=== PATIENT | male | born 1975 | race African-American/Black ===

== ENCOUNTER 2017-04-22 | Emergency (ER) | payer SELFPAY ==
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
--- NOTE | 2017-04-22 17:18 | EDPHYS ---
Physician Documentation [facility] Name: Mark Anthony Schultz Age: 41 yrs Sex: Male : 1975 Arrival Date: 04/22/2017 Time: 16:33 Bed 25 Private MD: None, None ED Physician Dennis Buckner HPI: 04/22 17:25 This 41 yrs old Black Male presents to ER via Ambulatory with complaints of Mouth snw Injury. 17:25 The patient presents with pain, swelling, a white plaque. The problem is located in the snw lower left lateral incisor. Onset: The symptoms/episode began/occurred acutely, yesterday, and became worse today, Noted pain post bumping chin against pole during [place] parade. Pt's states it is probably a tooth that he did not get extracted. Duration: The symptoms are continuous. Associated signs and symptoms: Pertinent positives: pain, redness in area, swelling. Severity of symptoms: At their worst the symptoms were moderate. It is unknown whether or not the patient has had similar symptoms in the past. The patient has not recently seen a physician. Historical: - Allergies: 16:52 Ibuprofen; hj - Home Meds: 16:52 eye drops [Active]; hj - PMHx: 16:52 None; hj - PSHx: 16:52 None; hj - Immunization history:: Adult Immunizations up to date. - Social history:: Smoking status: Patient uses tobacco products, denies chronic smoking, but will smoke occasionally. ROS: 17:25 Constitutional: Negative for fever, chills, and weight loss, Eyes: Negative for injury, snw pain, redness, and discharge, Neck: Negative for injury, pain, and swelling, Cardiovascular: Negative for chest pain, palpitations, and edema, Respiratory: Negative for shortness of breath, cough, wheezing, and pleuritic chest pain, Abdomen/GI: Negative for abdominal pain, nausea, vomiting, diarrhea, and constipation, Back: Negative for injury and pain, : Negative for injury, bleeding, discharge, and swelling, MS/Extremity: Negative for injury and deformity, Skin: Negative for injury, rash, and discoloration, Neuro: Negative for headache, weakness, numbness, tingling, and seizure. 17:25 ENT: Positive for of the chin, Teeth pain Exam: 17:20 Constitutional: This is a well developed, well nourished patient who is awake, alert, snw and in no acute distress. Head/Face: Normocephalic, atraumatic. Eyes: Pupils equal round and reactive to light, extra-ocular motions intact. Lids and lashes normal. Conjunctiva and sclera are non-icteric and not injected. Cornea within normal limits. Periorbital areas with no swelling, redness, or edema. Neck: Trachea midline, no thyromegaly or masses palpated, and no cervical lymphadenopathy. Supple, full range of motion without nuchal rigidity, or vertebral point tenderness. No Meningismus. Chest/axilla: Normal chest wall appearance and motion. Nontender with no deformity. No lesions are appreciated. Cardiovascular: Regular rate and rhythm with a normal S1 and S2. No gallops, murmurs, or rubs. Normal PMI, no JVD. No pulse deficits. Respiratory: Lungs have equal breath sounds bilaterally, clear to auscultation and percussion. No rales, rhonchi or wheezes noted. No increased work of breathing, no retractions or nasal flaring. Abdomen/GI: Soft, non-tender, with normal bowel sounds. No distension or tympany. No guarding or rebound. No evidence of tenderness throughout. Back: No spinal tenderness. No costovertebral tenderness. Full range of motion. Skin: Warm, dry with normal turgor. Normal color with no rashes, no lesions, and no evidence of cellulitis. MS/ Extremity: Pulses equal, no cyanosis. Neurovascular intact. Full, normal range of motion. Neuro: Awake and alert, GCS 15, oriented to person, place, time, and situation. Cranial nerves II-XII grossly intact. Motor strength 5/5 in all extremities. Sensory grossly intact. Cerebellar exam normal. Normal gait. Psych: Awake, alert, with orientation to person, place and time. Behavior, mood, and affect are within normal limits. 17:20 ENT: External ear(s): are unremarkable, Ear canal(s): are normal, Nose: is normal, Mouth: Oral mucosa: noted to have obvious stomatitis, Gums: pink, reddened, swollen, on the lower left lateral incisor, incisor to lower left mandible with exudate, erythema, edema, Posterior pharynx: is normal, Voice: is normal. Vital Signs: 16:53 BP 130 / 72; Pulse 90; Resp 18; Temp 98.0(O); Pulse Ox 100% on R/A; Weight 86.64 kg; hj Height 6 ft. 0 in. (182.88 cm); Pain 10/10; 16:53 Body Mass Index 25.91 (86.64 kg, 182.88 cm) hj MDM: 17:11 Patient medically screened. snw 17:25 Data reviewed: vital signs, nurses notes. Data interpreted: Pulse oximetry: on room air snw is 100 %. Interpretation: normal. Counseling: I had a detailed discussion with the patient and/or guardian regarding: the historical points, exam findings, and any diagnostic results supporting the discharge/admit diagnosis, the need for outpatient follow up, to return to the emergency department if symptoms worsen or persist or if there are any questions or concerns that arise at home. Special discussion: I discussed in detail with the patient the higher chance of wound infection based on his presenting history. Based on the history and exam findings, there is no indication for further emergent testing or inpatient evaluation. I discussed with the patient/guardian the need to see a dentist for further evaluation of the symptoms. I discussed with the patient/guardian the need to see the primary care provider for further evaluation of the symptoms. Administered Medications: 17:58 Not Given (pt discharged prior to giving medications): UltRAM 50 mg PO once tl3 17:58 Not Given (pt discharged prior to administering medications): Clindamycin 600 mg IM oncetl3 Disposition: 04/23 10:49 Co-signature as Attending Physician, Dennis Buckner MD I agree with the assessment and gayle plan of care. Disposition: 18 17:16 Discharged to Home. Impression: Periapical abscess without sinus. - Condition is Stable. - Discharge Instructions: Dental Abscess, Root Canal Treatment, Diet and Dental Disease. - Prescriptions for chlorhexidine gluconate 0.12 % Mucous Membrane mouthwash - place 15 milliliter by MUCOUS MEMBRANE route 2 times per day after brushing teeth, swish in mouth for 30 seconds then spit out; 480 milliliter. Clindamycin HCl 300 mg Oral Capsule - take 1 capsule by ORAL route every 6 hours for 10 days; 40 capsule. Ultram 50 mg Oral Tablet - take 1 tablet by ORAL route every 6 hours As needed; 20 tablet. - Medication Reconciliation Form, Thank You Letter, Antibiotic Education, Prescription Opioid Use form. - Follow up: Private Physician; When: Tomorrow; Reason: Recheck today's complaints, Continuance of care, Re-evaluation by your physician. Follow up: Emergency Department; When: As needed; Reason: Worsening of condition. Signatures: Dennis Buckner MD MD cha Therrien, Shelly, ADULT NEUROPSYCHOLOGIST-C ADULT NEUROPSYCHOLOGIST-Csnw Mejia Finch, RN RN Coretta Valladares RN RN tl3
== END 2017-04-22 18:00 | disposition home or self-care (01) ==
CPT/HCPCS: 99281

== ENCOUNTER 2017-11-13 20:17 | Emergency (ER) | payer SELFPAY ==
--- NOTE | 2017-11-13 20:44 | EDPHYS ---
Physician Documentation [facility] Name: Mark Anthony Schultz Age: 41 yrs Sex: Male : 1975 Arrival Date: 11/13/2017 Time: 20:20 Bed 10 Private MD: ED Physician Dion De La Torre HPI: 11/13 20:47 This 41 yrs old Black Male presents to ER via Ambulatory with complaints of Dental Pain.snw 20:47 The patient presents with broken tooth/teeth, pain, swelling. The problem is located in snw the left mandibular. Onset: The symptoms/episode began/occurred 3 week(s) ago. Duration: The symptoms are continuous. Associated signs and symptoms: Pertinent positives: pain. Severity of symptoms: At their worst the symptoms were moderate, severe. The patient has experienced similar episodes in the past. The patient has not recently seen a physician. states he is unable to afford dentist and would like shot of abx instead of pills. Historical: - Allergies: 20:28 Ibuprofen; sr5 - Home Meds: 20:28 None [Active]; sr5 - PMHx: 20:28 "low blood pressure some times"; sr5 - PSHx: 20:28 None; sr5 - Immunization history:: Adult Immunizations. - Social history:: Smoking status: Patient uses tobacco products, unknown amount. - Ebola Screening: : No symptoms or risks identified at this time. ROS: 20:46 Constitutional: Negative for fever, chills, and weight loss, Eyes: Negative for injury, snw pain, redness, and discharge, Neck: Negative for injury, pain, and swelling, Cardiovascular: Negative for chest pain, palpitations, and edema, Respiratory: Negative for shortness of breath, cough, wheezing, and pleuritic chest pain, Abdomen/GI: Negative for abdominal pain, nausea, vomiting, diarrhea, and constipation, Back: Negative for injury and pain, : Negative for injury, bleeding, discharge, and swelling, MS/Extremity: Negative for injury and deformity, Skin: Negative for injury, rash, and discoloration, Neuro: Negative for headache, weakness, numbness, tingling, and seizure, Psych: Negative for depression, anxiety, suicide ideation, homicidal ideation, and hallucinations. 20:46 ENT: Positive for Teeth pain Exam: 20:45 Constitutional: This is a well developed, well nourished patient who is awake, alert, snw and in no acute distress. Head/Face: Normocephalic, atraumatic. Eyes: Pupils equal round and reactive to light, extra-ocular motions intact. Lids and lashes normal. Conjunctiva and sclera are non-icteric and not injected. Cornea within normal limits. Periorbital areas with no swelling, redness, or edema. Neck: Trachea midline, no thyromegaly or masses palpated, and no cervical lymphadenopathy. Supple, full range of motion without nuchal rigidity, or vertebral point tenderness. No Meningismus. Chest/axilla: Normal chest wall appearance and motion. Nontender with no deformity. No lesions are appreciated. Cardiovascular: Regular rate and rhythm with a normal S1 and S2. No gallops, murmurs, or rubs. Normal PMI, no JVD. No pulse deficits. Respiratory: Lungs have equal breath sounds bilaterally, clear to auscultation and percussion. No rales, rhonchi or wheezes noted. No increased work of breathing, no retractions or nasal flaring. Abdomen/GI: Soft, non-tender, with normal bowel sounds. No distension or tympany. No guarding or rebound. No evidence of tenderness throughout. Back: No spinal tenderness. No costovertebral tenderness. Full range of motion. Skin: Warm, dry with normal turgor. Normal color with no rashes, no lesions, and no evidence of cellulitis. MS/ Extremity: Pulses equal, no cyanosis. Neurovascular intact. Full, normal range of motion. Neuro: Awake and alert, GCS 15, oriented to person, place, time, and situation. Cranial nerves II-XII grossly intact. Motor strength 5/5 in all extremities. Sensory grossly intact. Cerebellar exam normal. Normal gait. 20:45 ENT: Mouth: is normal, Posterior pharynx: is normal, Dental exam: dental caries, that is severe, diffusely, fractured teeth are noted, mandibular, missing teeth, diffusely, Breath odor: smoking. Vital Signs: 20:28 BP 136 / 95; Pulse 99; Resp 14; Temp 97.9; Pulse Ox 96% ; Weight 99.79 kg (R); Height 6 sr5 ft. 0 in. (182.88 cm); Pain 10/10; 20:28 Body Mass Index 29.84 (99.79 kg, 182.88 cm) sr5 MDM: 20:30 Patient medically screened. snw 20:46 Data reviewed: vital signs, nurses notes. Data interpreted: Pulse oximetry: on room air snw is 96 %. Interpretation: acceptable. Counseling: I had a detailed discussion with the patient and/or guardian regarding: the historical points, exam findings, and any diagnostic results supporting the discharge/admit diagnosis, the presence of at least one elevated blood pressure reading (>120/80) during this emergency department visit, the need for outpatient follow up, to return to the emergency department if symptoms worsen or persist or if there are any questions or concerns that arise at home. Special discussion: I have referred the patient to see his PCP for further evaluation of high blood pressure. Based on the history and exam findings, there is no indication for further emergent testing or inpatient evaluation. I discussed with the patient/guardian the need to see a dentist for further evaluation of the symptoms. I discussed with the patient/guardian the need to see the primary care provider for further evaluation of the symptoms. 20:47 Counseling: I had a detailed discussion with the patient and/or guardian regarding: snw smoking cessation. Administered Medications: 20:54 Drug: UltRAM 50 mg Route: PO; mg2 20:55 Follow up: Response: No adverse reaction; Medication administered at discharge. mg2 20:55 Drug: Bicillin L-A 2.4 million units Route: IM; Site: right gluteus; mg2 21:14 Follow up: Response: No adverse reaction mg2 Disposition: 11/14 01:01 Co-signature as Attending Physician, Dion De La Torre MD. rn Disposition: 11/13/17 20:43 Discharged to Home. Impression: Essential (primary) hypertension, Dental root caries. - Condition is Stable. - Discharge Instructions: Dental Caries, Adult, Dental Pain, Hypertension, Steps to Quit Smoking, Smoking Hazards, Root Canal, Diet and Dental Disease, DASH Eating Plan, Rehydration, Adult, Managing Your Hypertension. - Prescriptions for Ultram 50 mg Oral Tablet - take 1 tablet by ORAL route every 8 hours As needed; 10 tablet. - Medication Reconciliation Form, Thank You Letter, Antibiotic Education, Prescription Opioid Use form. - Follow up: Private Physician; When: 2 - 3 days; Reason: Recheck today's complaints, Continuance of care, Re-evaluation by your physician. Follow up: Emergency Department; When: As needed; Reason: Worsening of condition. Signatures: Genesis Bynres, UX VISUAL DESIGNER-C UX VISUAL DESIGNER-Csnw Dion De La Torre MD MD rn Ronal Mejia RN RN sr5 Vance Machaod RN RN mg2 Corrections: (The following items were deleted from the chart) 11/13 21:13 20:43 11/13/2017 20:43 Discharged to Home. Impression: Essential (primary) mg2 hypertension; Dental root caries. Condition is Stable. Forms are Medication Reconciliation Form, Thank You Letter, Antibiotic Education, Prescription Opioid Use. Follow up: Private Physician; When: 2 - 3 days; Reason: Recheck today's complaints, Continuance of care, Re-evaluation by your physician. Follow up: Emergency Department; When: As needed; Reason: Worsening of condition. snw
--- NOTE | 2017-11-13 20:44 | ER ---
Nurse's Notes [facility] Name: Mark Anthony Schultz Age: 41 yrs Sex: Male : 1975 Arrival Date: 11/13/2017 Time: 20:20 Bed 10 Private MD: Diagnosis: Essential (primary) hypertension;Dental root caries Presentation: 11/13 20:25 Presenting complaint: Patient states: LEFT lower tooth pain x 2 weeks, "unable to sr5 afford surgery". Transition of care: patient was not received from another setting of care. Onset of symptoms was October 25, 2017. 20:25 Method Of Arrival: Ambulatory sr5 20:25 Acuity: PAMELA 4 sr5 21:12 Risk Assessment: Do you want to hurt yourself or someone else? Patient reports no mg2 desire to harm self or others. Initial Sepsis Screen: Does the patient meet any 2 criteria? No. Patient's initial sepsis screen is negative. Does the patient have a suspected source of infection? No. Patient's initial sepsis screen is negative. Care prior to arrival: None. Triage Assessment: 20:28 General: Appears uncomfortable, Behavior is calm, cooperative. Pain: Complains of pain sr5 in mouth Pain currently is 10 out of 10 on a pain scale. Quality of pain is described as throbbing. Neuro: No deficits noted. Cardiovascular: No deficits noted. Respiratory: No deficits noted. Historical: - Allergies: 20:28 Ibuprofen; sr5 - Home Meds: 20:28 None [Active]; sr5 - PMHx: 20:28 "low blood pressure some times"; sr5 - PSHx: 20:28 None; sr5 - Immunization history:: Adult Immunizations. - Social history:: Smoking status: Patient uses tobacco products, unknown amount. - Ebola Screening: : No symptoms or risks identified at this time. Screenin:11 Abuse screen: Denies threats or abuse. Denies injuries from another. Nutritional mg2 screening: No deficits noted. Tuberculosis screening: No symptoms or risk factors identified. Fall Risk None identified. Assessment: 21:10 General: Appears in no apparent distress. uncomfortable, Behavior is calm, cooperative. mg2 Pain: Complains of pain in teeth Pain does not radiate. Pain currently is 10 out of 10 on a pain scale. Quality of pain is described as aching, Pain began gradually. Neuro: Level of Consciousness is awake, alert, obeys commands, Oriented to person, place, time, situation. Cardiovascular: Capillary refill < 3 seconds Patient's skin is warm and dry. Respiratory: Airway is patent Respiratory effort is even, unlabored, Respiratory pattern is regular, symmetrical. GI: No signs and/or symptoms were reported involving the gastrointestinal system. : No signs and/or symptoms were reported regarding the genitourinary system. EENT: No signs and/or symptoms were reported regarding the EENT system. EENT: tooth pain. Derm: Skin is intact, is healthy with good turgor, Skin is pink, warm \\T\\ dry. normal. Musculoskeletal: Circulation, motion, and sensation intact. Vital Signs: 20:28 BP 136 / 95; Pulse 99; Resp 14; Temp 97.9; Pulse Ox 96% ; Weight 99.79 kg (R); Height 6 sr5 ft. 0 in. (182.88 cm); Pain 10/10; 20:28 Body Mass Index 29.84 (99.79 kg, 182.88 cm) sr5 ED Course: 20:20 Patient arrived in ED. ds1 20:27 Triage completed. sr5 20:28 [facility]. snw 20:28 Dion De La Torre MD is Attending Physician. snw 20:28 Arm band placed on. sr5 20:33 Vance Machado, EDGAR is Primary Nurse. mg2 21:12 Patient has correct armband on for positive identification. Bed in low position. Pulse mg2 ox on. NIBP on. 21:12 No provider procedures requiring assistance completed. Patient did not have IV access mg2 during this emergency room visit. Administered Medications: 20:54 Drug: UltRAM 50 mg Route: PO; mg2 20:55 Follow up: Response: No adverse reaction; Medication administered at discharge. mg2 20:55 Drug: Bicillin L-A 2.4 million units Route: IM; Site: right gluteus; mg2 21:14 Follow up: Response: No adverse reaction mg2 Outcome: 20:43 Discharge ordered by . snw 21:13 Discharged to home ambulatory. mg2 21:13 Condition: stable 21:13 Discharge instructions given to patient, Instructed on discharge instructions, follow up and referral plans. medication usage, Demonstrated understanding of instructions, follow-up care, medications, Prescriptions given X 1. 21:13 Patient left the ED. mg2 Signatures: Genesis Byrnes, KNITTER WIRE MESH-C KNITTER WIRE MESH-Csnw Di Kay ds1 Ronal Mejia RN RN sr5 Vance Machado RN RN mg2
[2017-11-13] MEDS ORDERED: TRAMADOL HCL 50 MG TAB ONE (20:54)
[2017-11-13] MEDS ORDERED: PEN G BENZ LA 2.4 MU/4 ML SYRINGE IM ONE (20:54)
== END 2017-11-13 21:13 | disposition home or self-care (01) ==
LOC: ER 20:17
DX: K02.7 Dental root caries (principal); I10 Essential (primary) hypertension; Z72.0 Tobacco use; Z88.6 Allergy status to analgesic agent
CPT/HCPCS: 96372; 99283; J0561

== ENCOUNTER 2018-04-03 23:40 | Emergency (ER) | payer SELFPAY ==
--- NOTE | 2018-04-04 00:11 | EDPHYS ---
Physician Documentation [facility] Name: Mark Anthony Schultz Age: 42 yrs Sex: Male : 1975 Arrival Date: 04/03/2018 Time: 23:42 Bed 14 Private MD: ED Physician Jose Espinal HPI: 04/04 00:07 This 42 yrs old Black Male presents to ER via Ambulatory with complaints of Mouth jr8 Problem. 00:07 The patient presents with broken tooth/teeth, pain. The problem is located in the upper jr8 right first molar. Onset: The symptoms/episode began/occurred acutely, 3 day(s) ago, and became worse and became persistent. Duration: The symptoms are continuous. Modifying factors: The symptoms are alleviated by nothing, the symptoms are aggravated by chewing, talking. Associated signs and symptoms: The patient has no apparent associated signs or symptoms. Severity of symptoms: At their worst the symptoms were moderate, in the emergency department the symptoms are unchanged. The patient has not experienced similar symptoms in the past. The patient has not recently seen a physician. Scheduled to see Dentist this upcoming week but cannot take the pain any longer. Has been using BC powder and Ibuprofen OTC. Historical: - Allergies: 04/03 23:49 Ibuprofen; tl2 - Home Meds: 23:49 None [Active]; tl2 - PMHx: 23:49 "low blood pressure some times"; tl2 - PSHx: 23:49 None; tl2 - Immunization history:: Adult Immunizations up to date. - Social history:: Smoking status: Patient uses tobacco products, smokes one-half pack cigarettes per day, Patient uses alcohol, occasionally. - Ebola Screening: : No symptoms or risks identified at this time. ROS: 04/04 00:07 Eyes: Negative for injury, pain, redness, and discharge, Neck: Negative for injury, jr8 pain, and swelling, Cardiovascular: Negative for chest pain, palpitations, and edema, Respiratory: Negative for shortness of breath, cough, wheezing, and pleuritic chest pain, Abdomen/GI: Negative for abdominal pain, nausea, vomiting, diarrhea, and constipation, Back: Negative for injury and pain, MS/Extremity: Negative for injury and deformity, Skin: Negative for injury, rash, and discoloration, Neuro: Negative for headache, weakness, numbness, tingling, and seizure. ENT: Positive for dental pain. Exam: 00:07 Eyes: Pupils equal round and reactive to light, extra-ocular motions intact. Lids and jr8 lashes normal. Conjunctiva and sclera are non-icteric and not injected. Cornea within normal limits. Periorbital areas with no swelling, redness, or edema. Neck: Trachea midline, no thyromegaly or masses palpated, and no cervical lymphadenopathy. Supple, full range of motion without nuchal rigidity, or vertebral point tenderness. No Meningismus. Cardiovascular: Regular rate and rhythm with a normal S1 and S2. No gallops, murmurs, or rubs. Normal PMI, no JVD. No pulse deficits. Respiratory: Lungs have equal breath sounds bilaterally, clear to auscultation and percussion. No rales, rhonchi or wheezes noted. No increased work of breathing, no retractions or nasal flaring. Abdomen/GI: Soft, non-tender, with normal bowel sounds. No distension or tympany. No guarding or rebound. No evidence of tenderness throughout. Back: No spinal tenderness. No costovertebral tenderness. Full range of motion. Skin: Warm, dry with normal turgor. Normal color with no rashes, no lesions, and no evidence of cellulitis. MS/ Extremity: Pulses equal, no cyanosis. Neurovascular intact. Full, normal range of motion. Neuro: Awake and alert, GCS 15, oriented to person, place, time, and situation. Cranial nerves II-XII grossly intact. Motor strength 5/5 in all extremities. Sensory grossly intact. Cerebellar exam normal. Normal gait. 00:07 ENT: Exam is negative for earache, ear discharge, TM abnormalities, nasal discharge, pharyngitis, exudate, Dental exam: dental caries, that is severe, diffusely, fractured teeth are noted, diffusely, pain, that is moderate, specifically in the upper right second molar (#2) and upper right first molar (#3). Vital Signs: 04/03 23:49 BP 131 / 99; Pulse 92; Resp 18; Temp 98.5(O); Pulse Ox 97% on R/A; Weight 98.43 kg; tl2 Height 6 ft. 1 in. (185.42 cm); Pain 10/10; 23:49 Body Mass Index 28.63 (98.43 kg, 185.42 cm) tl2 MDM: 04/04 00:04 Patient medically screened. jr8 00:07 Data reviewed: vital signs, nurses notes, and as a result, I will discharge patient. jr8 Data interpreted: Pulse oximetry: on room air is 97 %. Interpretation: normal. Counseling: I had a detailed discussion with the patient and/or guardian regarding: the historical points, exam findings, and any diagnostic results supporting the discharge/admit diagnosis, the need for outpatient follow up, a dentist, to return to the emergency department if symptoms worsen or persist or if there are any questions or concerns that arise at home. Administered Medications: No medications were administered Disposition: 06:09 Co-signature as Attending Physician, Jose Espinal MD I agree with the assessment and tw4 plan of care. Disposition: 04/04/18 00:10 Discharged to Home. Impression: Dental caries, Dental root caries, Dentalgia . - Condition is Stable. - Discharge Instructions: Dental Caries, Adult, Dental Pain. - Prescriptions for Augmentin 875- 125 mg Oral Tablet - take 1 tablet by ORAL route every 12 hours for 10 days; 20 tablet. Pepcid 20 mg Oral Tablet - take 1 tablet by ORAL route every 12 hours for 10 days; 20 tablet. Tylenol- Codeine #3 300-30 mg Oral Tablet - take 2 tablets by ORAL route every 6 hours As needed; 20 tablet. - Medication Reconciliation Form, Thank You Letter, Antibiotic Education, Prescription Opioid Use form. - Follow up: Private Physician; When: 5 - 6 days; Reason: Recheck today's complaints, Continuance of care, Re-evaluation by your physician. - Problem is new. - Symptoms have improved. Signatures: Steven Ford PA PA jr8 Pauline Martinez RN RN tl2 Ghanshyam Desai RN RN jb4 Jose Espinal MD MD tw4 Corrections: (The following items were deleted from the chart) 00: 00:10 04/04/2018 00:10 Discharged to Home. Impression: Dental caries; Dental root jb4 caries; Dentalgia . Condition is Stable. Forms are Medication Reconciliation Form, Thank You Letter, Antibiotic Education, Prescription Opioid Use. Follow up: Private Physician; When: 5 - 6 days; Reason: Recheck today's complaints, Continuance of care, Re-evaluation by your physician. Problem is new. Symptoms have improved. jr8
--- NOTE | 2018-04-04 00:11 | ER ---
Nurse's Notes [facility] Name: Mark Anthony Schultz Age: 42 yrs Sex: Male : 1975 Arrival Date: 04/03/2018 Time: 23:42 Bed 14 Private MD: Diagnosis: Dental caries;Dental root caries;Dentalgia Presentation: 04/03 23:48 Presenting complaint: Patient states: broke tooth 1 week ago, upper right molar is tl2 gone. Unable to see dentist for 1 week. Has taken four BC powder and tylenol. Transition of care: patient was not received from another setting of care. Onset of symptoms was March 27, 2018. Risk Assessment: Do you want to hurt yourself or someone else? Patient reports no desire to harm self or others. Initial Sepsis Screen: Does the patient meet any 2 criteria? No. Patient's initial sepsis screen is negative. Does the patient have a suspected source of infection? No. Patient's initial sepsis screen is negative. Care prior to arrival: None. 23:48 Method Of Arrival: Ambulatory tl2 23:48 Acuity: PAMELA 4 tl2 Triage Assessment: 23:49 General: Appears in no apparent distress. uncomfortable, Behavior is calm, cooperative, tl2 appropriate for age. Pain: Complains of pain in upper right first molar. Historical: - Allergies: 23:49 Ibuprofen; tl2 - Home Meds: 23:49 None [Active]; tl2 - PMHx: 23:49 "low blood pressure some times"; tl2 - PSHx: 23:49 None; tl2 - Immunization history:: Adult Immunizations up to date. - Social history:: Smoking status: Patient uses tobacco products, smokes one-half pack cigarettes per day, Patient uses alcohol, occasionally. - Ebola Screening: : No symptoms or risks identified at this time. Screenin:50 Abuse screen: Denies threats or abuse. Nutritional screening: No deficits noted. tl2 Tuberculosis screening: No symptoms or risk factors identified. Fall Risk None identified. Assessment: 23:50 General: Appears uncomfortable, Behavior is calm, cooperative, appropriate for age. jb4 Pain: Complains of pain in upper right first molar Pain radiates to right zygomatic area Pain currently is 10 out of 10 on a pain scale. Neuro: Level of Consciousness is awake, alert, obeys commands, Oriented to person, place, time, situation. Cardiovascular: Patient's skin is warm and dry. Respiratory: Airway is patent Respiratory effort is even, unlabored, Respiratory pattern is regular, symmetrical. GI: Reports nausea. : No signs and/or symptoms were reported regarding the genitourinary system. EENT: Poor dentition noted. Throat is clear. Derm: Skin is intact, Skin is dry, Skin is normal, Skin temperature is warm. Musculoskeletal: Circulation, motion, and sensation intact. Vital Signs: 23:49 BP 131 / 99; Pulse 92; Resp 18; Temp 98.5(O); Pulse Ox 97% on R/A; Weight 98.43 kg; tl2 Height 6 ft. 1 in. (185.42 cm); Pain 10/10; 23:49 Body Mass Index 28.63 (98.43 kg, 185.42 cm) tl2 ED Course: 23:42 Patient arrived in ED. es 23:49 Triage completed. tl2 23:49 Arm band placed on right wrist. tl2 23:50 Patient has correct armband on for positive identification. Bed in low position. Call tl2 light in reach. Side rails up X 1. Adult w/ patient. 23:55 Steven Ford PA is PHCP. jr8 23:55 Jose Espinal MD is Attending Physician. jr8 23:56 Ghanshyam Desai, RN is Primary Nurse. jb4 04/04 00:19 No provider procedures requiring assistance completed. Patient did not have IV access jb4 during this emergency room visit. Administered Medications: No medications were administered Outcome: 00:10 Discharge ordered by . jr8 00:19 Discharged to home ambulatory. jb4 00:19 Condition: stable 00:19 Discharge instructions given to patient, Instructed on discharge instructions, follow up and referral plans. medication usage, Demonstrated understanding of instructions, follow-up care, medications, Prescriptions given X 3. 00:19 Patient left the ED. jb4 Signatures: Shila Tolentino Josh, PA PA jr8 Pauline Martinez RN RN tl2 Ghanshyam Desai RN RN jb4
== END 2018-04-04 00:19 | disposition home or self-care (01) ==
LOC: ER 23:40
DX: K02.7 Dental root caries (principal); K02.9 Dental caries, unspecified; F17.210 Nicotine dependence, cigarettes, uncomplicated; Z88.6 Allergy status to analgesic agent
CPT/HCPCS: 99282

== ENCOUNTER 2018-04-05 08:37 | Emergency (ER) | payer SELFPAY ==
[2018-04-05 09:06] LABS: Absolute Lymphocytes (CBC) 2.6 K/uL (0.7-4.9); Absolute Monocytes 1.5 K/uL (0.1-1.3); Absolute Neutrophil 12.2 K/uL (1.8-8.0); Basophils % 0.7 % (0-1.3); Eosinophils % 0.9 % (0-4.4); Hematocrit 43.3 % (39.6-49.0); Lymphocytes % 15.5 % (15.3-44.8); MPV 8.1 fL (7.6-11.3); Monocytes % 9.1 % (3.3-12.3); RBC Red Blood Cell Count 5.05 M/uL (4.33-5.43)
[2018-04-05] MEDS ORDERED: KETOROLAC 30 MG/ML INJ ONE (09:17)
[2018-04-05] MEDS ORDERED: CLINDAMYCIN 900MG/D5W 900 MG/50 ML IVPB IV ONE (09:17)
[2018-04-05 09:22] LABS: Potassium 3.8 mmol/L (3.5-5.1)
--- NOTE | 2018-04-05 10:09 | RAD REPORT ---
EXAM DESCRIPTION: CT - Facial Bones W Con Mpr - 04/05/2018 9:38 am CLINICAL HISTORY: Fever, right-sided facial pain and swelling COMPARISON: None. TECHNIQUE: Axial 2 millimeter thick imaging of the facial bones performed. Sagittal and coronal refo rmatted images were generated and reviewed. The CT scan was performed using dose optimization techniques as appropriate to a performed exam incl uding one or more of the following: Automated exposure control, adjustment of the mA and/or kV accord ing to patient size (this includes techniques or standardized protocols for targeted exams where dose is matched to indication/reason for exam) and use of iterative reconstruction technique. FINDINGS: No globe or orbital content abnormality identified. Paranasal sinuses are clear except for mild mucosal thickening along the anterior wall and anterior floor the right maxillary sinus. No air -fluid level. Mastoid air cells are clear. No sclerotic or expansile changes of the sinus londono. A ve ry slight right deviation of the nasal septum is present. No nasal passage or nasopharyngeal abnormal ity identifiable. Condyles of the mandible are normally positioned. No fracture changes are seen. There is lucency arou nd the roots of several teeth in the mandible. There is cortical thinning anteriorly. Congestion and edema changes are seen in mucosa and soft tissues adjacent to the lateral and medial margins of the m andible. Lucency is identifiable in the maxilla as well around several of the teeth. Cortical thinnin g is seen posterior right maxilla. Edematous/inflammatory changes are present in the soft tissues but no clearly defined abscess or drainable collections seen. Note tongue base or tonsillar abnormality. Reactive lymph nodes are seen in the neck. No suspicious parotid or submandibular gland abnormality. IMPRESSION: Edematous/inflammatory changes are seen in the soft tissues adjacent to the mandible and maxilla. No abscess or drainable fluid collection is identifiable. Cortical thinning and lucency surrounds several teeth of the mandible and maxilla.
--- NOTE | 2018-04-05 10:26 | EDPHYS ---
Physician Documentation [facility] Name: Mark Anthony Schultz Age: 42 yrs Sex: Male : 1975 Arrival Date: 04/05/2018 Time: 08:40 Bed 19 Private MD: None, None ED Physician Mono Stern HPI: 04/05 12:06 This 42 yrs old Black Male presents to ER via Ambulatory with complaints of Facial kdr Swelling. 12:06 The patient presents with pain, redness, swelling. The problem is located in the right kdr shinto, right zygomatic area and right cheek. Onset: The symptoms/episode began/occurred gradually, 1 week(s) ago. Duration: The symptoms are continuous, and are steadily getting worse. Modifying factors: The symptoms are alleviated by nothing, the symptoms are aggravated by chewing, food. Associated signs and symptoms: The patient has no apparent associated signs or symptoms. Severity of symptoms: At their worst the symptoms were mild, moderate, just prior to arrival, in the emergency department the symptoms are actually worse, mildly, a " 5" out of "10". The patient has experienced similar episodes in the past, several times. The patient has been recently seen by a physician: The patient has been recently seen at the [facility] Emergency Department, this week. Historical: - Allergies: 08:48 Ibuprofen; hj - Home Meds: 08:48 None [Active]; hj - PMHx: 08:48 "low blood pressure some times"; hj - PSHx: 08:48 None; hj - Immunization history:: Adult Immunizations up to date. - Social history:: Smoking status: Patient uses tobacco products, Patient/guardian denies using alcohol. - Ebola Screening: : Patient negative for fever greater than or equal to 101.5 degrees Fahrenheit, and additional compatible Ebola Virus Disease symptoms Patient denies exposure to infectious person Patient denies travel to an Ebola-affected area in the 21 days before illness onset. ROS: 12:06 Constitutional: Negative for fever, chills, and weight loss, Eyes: Negative for injury, kdr pain, redness, and discharge, Neck: Negative for injury, pain, and swelling, Cardiovascular: Negative for chest pain, palpitations, and edema. 12:06 ENT: Positive for Pain and swelling to the right face for the past week. Was seen here for same and given abx and pain medication but he continues to have pain and swelling. 12:06 Neck: Positive for pain with movement, pain at rest, swelling, tenderness, of the right shinto and right zygomatic area. Exam: 12:06 Constitutional: This is a well developed, well nourished patient who is awake, alert, kdr and in no acute distress. Eyes: Pupils equal round and reactive to light, extra-ocular motions intact. Lids and lashes normal. Conjunctiva and sclera are non-icteric and not injected. Cornea within normal limits. Periorbital areas with no swelling, redness, or edema. 12:06 Head/face: Noted is erythema, that is mild, of the right shinto and right zygomatic area, swelling, that is moderate, of the right shinto and right zygomatic area, tenderness, that is mild, of the right shinto and right zygomatic area. Vital Signs: 08:50 BP 142 / 100; Pulse 111; Resp 18; Temp 98.0(O); Pulse Ox 98% on R/A; Weight 106.14 kg; hj Height 6 ft. 1 in. (185.42 cm); 10:49 BP 138 / 89; Pulse 81; Resp 17; Pulse Ox 100% on R/A; Pain 6/10; ed1 08:50 Body Mass Index 30.87 (106.14 kg, 185.42 cm) hj MDM: 10:25 Patient medically screened. kdr 12:06 Data reviewed: vital signs, nurses notes, lab test result(s), radiologic studies. kdr Counseling: I had a detailed discussion with the patient and/or guardian regarding: the historical points, exam findings, and any diagnostic results supporting the discharge/admit diagnosis, lab results, radiology results, the need for outpatient follow up. 04/05 08:52 Order name: CBC with Diff; Complete Time: 09:35 kdr 03 08:52 Order name: Chem 7; Complete Time: 09:35 kdr 04/05 08:52 Order name: CT Facial Bones W/ Con \\T\\ Mpr; Complete Time: 10:22 kdr Administered Medications: 09:09 Drug: TORadol 30 mg Route: IVP; Site: right antecubital; 09:33 Follow up: Response: No adverse reaction; Pain is decreased 09:09 Drug: Clindamycin 900 mg Route: IVPB; Infused Over: 30 mins; Site: right antecubital; 09:34 Follow up: IV Status: Completed infusion Disposition: 04/05/18 10:25 Discharged to Home. Impression: Facial Cellulitis, Poor dentition, dental infection. - Condition is Stable. - Discharge Instructions: Cellulitis, Adult, [id number], Dental Caries, [id number]. - Prescriptions for ketorolac 10 mg Oral tablet - take 1 tablet by ORAL route every 4-6 hours As needed not to exceed 40 mg in 24hrs; 20 tablet. Clindamycin HCl 300 mg Oral Capsule - take 1 capsule by ORAL route every 6 hours for 10 days; 40 capsule. - Medication Reconciliation Form, Thank You Letter, Antibiotic Education, Prescription Opioid Use form. - Follow up: Private Physician; When: 2 - 3 days; Reason: If symptoms return, Further diagnostic work-up, Recheck today's complaints, Continuance of care, Re-evaluation by your physician. - Problem is an ongoing problem. - Symptoms have improved. - Notes: Continue current medications Signatures: Dispatcher [employer] EDMS Mono Stern MD MD kdr Dorys Batista RN RN ed1 Mejia Finch RN RN Corrections: (The following items were deleted from the chart) 10:51 10:25 04/05/2018 10:25 Discharged to Home. Impression: Facial Cellulitis, Poor ed1 dentition, dental infection. Condition is Stable. Forms are Medication Reconciliation Form, Thank You Letter, Antibiotic Education, Prescription Opioid Use. Follow up: Private Physician; When: 2 - 3 days; Reason: If symptoms return, Further diagnostic work-up, Recheck today's complaints, Continuance of care, Re-evaluation by your physician. Problem is an ongoing problem. Symptoms have improved. kdr
--- NOTE | 2018-04-05 10:26 | ER ---
Nurse's Notes [facility] Name: Mark Anthony Schultz Age: 42 yrs Sex: Male : 1975 Arrival Date: 04/05/2018 Time: 08:40 Bed 19 Private MD: None, None Diagnosis: Facial Cellulitis, Poor dentition, dental infection Presentation: 04/05 08:46 Presenting complaint: Patient states: i was here 2 nights ago for tooth problems and hj they gave me antibiotics, now the R side of my face is swollen;. Transition of care: patient was not received from another setting of care. Onset of symptoms was April 05, 2018. Risk Assessment: Do you want to hurt yourself or someone else? Patient reports no desire to harm self or others. Initial Sepsis Screen: Does the patient meet any 2 criteria? Yes Does the patient have a suspected source of infection? Yes:. Care prior to arrival: None. 08:46 Method Of Arrival: Ambulatory 08:46 Acuity: PAMELA 4 hj Triage Assessment: 08:48 General: Appears in no apparent distress. uncomfortable, Behavior is calm, cooperative, hj appropriate for age. Pain: Complains of pain in right cheek, right ear and right jaw. EENT: Reports pain in right cheek, right ear and right jaw. Neuro: Level of Consciousness is awake, alert, obeys commands, Oriented to person, place, time, situation, Appropriate for age. Cardiovascular: Capillary refill < 3 seconds Patient's skin is warm and dry. Respiratory: Airway is patent Respiratory effort is even, unlabored, Respiratory pattern is regular, symmetrical. GI: No signs and/or symptoms were reported involving the gastrointestinal system. : No signs and/or symptoms were reported regarding the genitourinary system. Derm: Abscess Reports swelling on R side of face. Musculoskeletal: No signs and/or symptoms reported regarding the musculoskeletal system. Historical: - Allergies: 08:48 Ibuprofen; hj - Home Meds: 08:48 None [Active]; hj - PMHx: 08:48 "low blood pressure some times"; hj - PSHx: 08:48 None; hj - Immunization history:: Adult Immunizations up to date. - Social history:: Smoking status: Patient uses tobacco products, Patient/guardian denies using alcohol. - Ebola Screening: : Patient negative for fever greater than or equal to 101.5 degrees Fahrenheit, and additional compatible Ebola Virus Disease symptoms Patient denies exposure to infectious person Patient denies travel to an Ebola-affected area in the 21 days before illness onset. Screenin:48 Abuse screen: Denies threats or abuse. Denies injuries from another. Nutritional hj screening: No deficits noted. Tuberculosis screening: No symptoms or risk factors identified. Fall Risk None identified. Assessment: 08:51 Reassessment: see triage for assessment;. hj 09:30 Reassessment: wheeled to CT;. hj 10:49 Reassessment: Patient appears in no apparent distress at this time. Patient and/or ed1 family updated on plan of care and expected duration. Pain level reassessed. Patient is alert, oriented x 3, equal unlabored respirations, skin warm/dry/pink. Patient states feeling better. Patient states symptoms have improved. Vital Signs: 08:50 BP 142 / 100; Pulse 111; Resp 18; Temp 98.0(O); Pulse Ox 98% on R/A; Weight 106.14 kg; hj Height 6 ft. 1 in. (185.42 cm); 10:49 BP 138 / 89; Pulse 81; Resp 17; Pulse Ox 100% on R/A; Pain 6/10; ed1 08:50 Body Mass Index 30.87 (106.14 kg, 185.42 cm) ED Course: 08:40 Patient arrived in ED. mr 08:40 None, None is Private Physician. mr 08:42 Mono Stern MD is Attending Physician. kdr 08:46 Mejia Finch, EDGAR is Primary Nurse. hj 08:47 Triage completed. hj 08:49 Arm band placed on left wrist. hj 08:49 Patient has correct armband on for positive identification. Bed in low position. Call light in reach. Side rails up X 1. 08:56 Radiology exam delayed due to lab results not completed at this time. (BUN/Creatinine). vm2 09:00 Initial lab(s) drawn, by me, sent to lab. Inserted saline lock: 22 gauge in right hj antecubital area, using aseptic technique. Blood collected. 09:03 Chem 7 Sent. hj 09:03 CBC with Diff Sent. hj 09:13 Radiology exam delayed due to lab results not completed at this time. (BUN/Creatinine). vm2 09:[address] via wheelchair. vm2 09:33 CT completed. Patient tolerated procedure well. Patient moved back from CT. vr 09:38 CT Facial Bones W/ Con \\T\\ Mpr In Process Unspecified. EDMS 09:59 Primary Nurse role handed off by Mejia Finch, EDGAR ed1 09:59 Dorys Batista, RN is Primary Nurse. ed1 10:49 No provider procedures requiring assistance completed. IV discontinued, intact, ed1 bleeding controlled, No redness/swelling at site. Pressure dressing applied. Administered Medications: 09:09 Drug: TORadol 30 mg Route: IVP; Site: right antecubital; hj 09:33 Follow up: Response: No adverse reaction; Pain is decreased hj 09:09 Drug: Clindamycin 900 mg Route: IVPB; Infused Over: 30 mins; Site: right antecubital; hj 09:34 Follow up: IV Status: Completed infusion hj Outcome: 10:25 Discharge ordered by . kdr 10:49 Discharged to home ambulatory. ed1 10:49 Condition: good 10:49 Discharge instructions given to patient, Instructed on discharge instructions, follow up and referral plans. medication usage, Demonstrated understanding of instructions, follow-up care, medications, Prescriptions given X 2. 10:51 Patient left the ED. ed1 Signatures: Dispatcher [employer] EDNH Mono Stern MD MD kdr Rivera, Mary mr Dorys Batista, EDGAR HERNÁNDEZ ed1 Ifrah Nash Mejia Finch RN RN Ifrah Stover 2
== END 2018-04-05 10:51 | disposition home or self-care (01) ==
LOC: ER 08:37
DX: K04.7 Periapical abscess without sinus (principal); Z72.0 Tobacco use; Z88.6 Allergy status to analgesic agent
CPT/HCPCS: 36415; 70487; 76377; 80048; 85025; 96365; 96375; 99284; Q9967

== ENCOUNTER 2018-06-30 13:33 | Emergency (ER) | payer SELFPAY ==
[2018-06-30] MEDS ORDERED: NA CHLORIDE 0.9% 1,000 ML ONE ×2 (14:37→16:59)
[2018-06-30 14:54] LABS: Absolute Lymphocytes (CBC) 1.8 K/uL (0.7-4.9); Absolute Monocytes 1.5 K/uL (0.1-1.3); Absolute Neutrophil 8.5 K/uL (1.8-8.0); Basophils % 0.5 % (0-1.3); Eosinophils % 0.6 % (0-4.4); Hematocrit 45.5 % (39.6-49.0); Lymphocytes % 14.8 % (15.3-44.8); MPV 8.6 fL (7.6-11.3); Monocytes % 12.9 % (3.3-12.3); RBC Red Blood Cell Count 5.24 M/uL (4.33-5.43)
[2018-06-30 15:22] LABS: ALT/SGPT 41 U/L (12-78); AST/SGOT 25 U/L (15-37); Albumin 3.6 g/dL (3.4-5.0); Alkaline Phosphatase 107 U/L (45-117); BUN Blood Urea Nitrogen 9 mg/dL (7-18); Bicarbonate 28 mmol/L (21-32); Bilirubin Direct < 0.1 mg/dL (0-0.2); Bilirubin Total 0.4 mg/dL (0.2-1.0); Glucose Level 91 mg/dL (74-106); Lipase 84 U/L (73-393); Potassium 4.1 mmol/L (3.5-5.1); Protein, Total 7.4 g/dL (6.4-8.2); Sodium Level 139 mmol/L (136-145)
[2018-06-30] MEDS ORDERED: PROMETHAZINE 25 MG/ML VIAL ONE (15:36)
[2018-06-30] MEDS ORDERED: FENTANYL CITR 100 MCG/2 ML ONE (15:37)
[2018-06-30] MEDS ORDERED: ACETAMINOPHEN 500 MG TAB ONE (16:01)
--- NOTE | 2018-06-30 16:19 | RAD REPORT ---
EXAM DESCRIPTION: CT - Abdomen Pelvis W Contrast - 06/30/2018 3:56 pm CLINICAL HISTORY: Fever, abdominal pain COMPARISON: None. TECHNIQUE: Biphasic, helical CT imaging of the abdomen and pelvis was performed following 100 ml non -ionic IV contrast. Oral contrast was given. All CT scans are performed using dose optimization technique as appropriate and may include automated exposure control or mA/KV adjustment according to patient size. FINDINGS: Interstitial opacification in each posterior gutter likely atelectasis. No pleural effusio n. No pericardial effusion. The liver, spleen, and pancreas show no suspicious findings. Gallbladder and biliary tree are also wi thout suspicious finding. Symmetric renal function is seen with no hydronephrosis or suspicious renal mass. No pyelonephritis o r acute parenchymal process. No bladder abnormalities. No adrenal abnormalities. Benign renal cyst pr esent on the left. No dilated bowel loops or bowel wall thickening. Appendix is normal. Left-sided diverticulosis presen t mild in degree without diverticulitis. No free air, free fluid or inflammatory stranding. No mass or bulky lymphadenopathy. Fat extends into the origin of each inguinal canal, more so on the left. Pe riumbilical fat only hernia present. No suspicious bony findings. No acute vascular finding. IMPRESSION: Contrast enhanced CT abdomen and pelvis showing no significant or acute finding.
[2018-06-30] MEDS ORDERED: CIPROFLOXACIN 400mg IV 400 MG/200 ML BAG IV ONE (16:59)
--- NOTE | 2018-06-30 17:20 | ER ---
Nurse's Notes [facility] Name: Mark Anthony Schultz Age: 42 yrs Sex: Male : 1975 Arrival Date: 06/30/2018 Time: 13:37 Bed 20 Private MD: Diagnosis: Diverticulosis of intestine, part unspecified, without perforation or abscess without bleeding;Bilateral inguinal hernia, without obstruction or gangrene, not specified as recurrent;Generalized abdominal pain;Dehydration Presentation: 06/30 13:39 Presenting complaint: Patient states: I ate lunch about 1200 yesterday and then around la1 1900 I started getting a fever and abd pain/cramping. Denies Vomiting/diarrhea, but reports nausea. Transition of care: patient was not received from another setting of care. Onset of symptoms was June 30, 2018. Risk Assessment: Do you want to hurt yourself or someone else? Patient reports no desire to harm self or others. Initial Sepsis Screen: Does the patient meet any 2 criteria? No. Patient's initial sepsis screen is negative. Does the patient have a suspected source of infection? No. Patient's initial sepsis screen is negative. Care prior to arrival: None. 13:39 Method Of Arrival: Ambulatory la1 13:39 Acuity: PAMELA 3 la1 Historical: - Allergies: 13:41 Ibuprofen; la1 - PMHx: 13:41 "low blood pressure some times"; la1 - Immunization history:: Adult Immunizations up to date. - Social history:: Smoking status: Patient uses tobacco products, smokes one pack cigarettes per day. - Ebola Screening: : No symptoms or risks identified at this time. Screenin:52 Abuse screen: Denies threats or abuse. Nutritional screening: No deficits noted. em Tuberculosis screening: No symptoms or risk factors identified. Fall Risk None identified. Assessment: 13:55 General: Appears in no apparent distress. uncomfortable, Behavior is calm, cooperative, em Reports fever for 12-24 hours. Pain: Complains of pain in left lower quadrant Pain currently is 10 out of 10 on a pain scale. Neuro: Level of Consciousness is awake, alert, obeys commands, Oriented to person, place, time, situation, Greenhouse Grower are equal bilaterally Moves all extremities. Gait is steady, Speech is normal, Facial symmetry appears normal, Reports dizziness, headache Denies weakness blurred vision. Cardiovascular: Capillary refill < 3 seconds Patient's skin is warm and dry. Respiratory: Reports cough that is Airway is patent Respiratory effort is even, unlabored, Respiratory pattern is regular, symmetrical, Breath sounds are clear bilaterally. GI: Abdomen is round non-distended, Bowel sounds present X 4 quads. Abd is soft X 4 quads Abdomen is tender to palpation X 4 quads. Derm: Skin is intact, is healthy with good turgor, Skin is pink, warm \\T\\ dry. Musculoskeletal: Capillary refill < 3 seconds, Range of motion: intact in all extremities. 15:16 Reassessment: Patient appears in no apparent distress at this time. Patient and/or em family updated on plan of care and expected duration. Pain level reassessed. Patient is alert, oriented x 3, equal unlabored respirations, skin warm/dry/pink. 16:08 Reassessment: Patient appears in no apparent distress at this time. Patient and/or em family updated on plan of care and expected duration. Pain level reassessed. Patient is alert, oriented x 3, equal unlabored respirations, skin warm/dry/pink. 16:53 Reassessment: Patient appears in no apparent distress at this time. Patient and/or em family updated on plan of care and expected duration. Pain level reassessed. Patient is alert, oriented x 3, equal unlabored respirations, skin warm/dry/pink. rates pain 7/10 Patient states feeling better. 17:26 Reassessment: will be discharged after completion of IV ABX and NS bolus. em Vital Signs: 13:41 BP 134 / 90; Pulse 105; Resp 16; Temp 100.0; Pulse Ox 98% on R/A; Weight 99.79 kg; la1 Height 6 ft. 0 in. (182.88 cm); 15:16 BP 122 / 81; Pulse 98; Resp 18; Pulse Ox 100% on R/A; Pain 10/10; em 16:08 BP 131 / 77; Pulse 97; Resp 16; Temp 101.8(O); Pulse Ox 100% on R/A; em 17:21 BP 120 / 65; Pulse 101; Resp 16; Temp 99.9(O); Pulse Ox 97% on R/A; Pain 7/10; em 13:41 Body Mass Index 29.84 (99.79 kg, 182.88 cm) la1 ED Course: 13:37 Patient arrived in ED. rg4 13:40 Triage completed. la1 13:41 Arm band placed on left wrist. la1 13:51 Sarbjit Albarado LVN is Primary Nurse. em 13:52 Patient has correct armband on for positive identification. Placed in gown. Bed in low em position. Call light in reach. Pulse ox on. NIBP on. 14:11 Genesis Byrnes FNP-C is PHCP. snw 14:11 Mono Stern MD is Attending Physician. snw 14:23 Initial lab(s) drawn, by me, sent to lab. Inserted saline lock: 20 gauge in right dh3 antecubital area, using aseptic technique. Blood collected. 15:[address] via stretcher. sw 15:49 CT completed. Patient tolerated procedure well. Patient moved back from CT. sw 15:58 CT Abd/Pelvis - W/Contrast In Process Unspecified. EDMS 17:27 Report given to EDGAR Aquino. em Administered Medications: 14:26 Drug: NS 0.9% 1000 ml Route: IV; Rate: 125 ml/hr; Site: right antecubital; em 15:34 Drug: Phenergan 12.5 mg Route: IVP; Site: right antecubital; iw 16:10 Follow up: Response: No adverse reaction em 15:38 Drug: fentaNYL (PF) 25 mcg Route: IVP; Site: right antecubital; iw 16:10 Follow up: Response: No adverse reaction em 16:50 Drug: Ciprofloxacin 400 mg Volume: 200 ml; Route: IVPB; Infused Over: 60 mins; Site: em right antecubital; 16:50 Drug: NS 0.9% 1000 ml Route: IV; Rate: 1 bolus; Site: right antecubital; em Outcome: 17:20 Discharge ordered by . snw 17:47 Patient left the ED. 3 Signatures: Dispatcher [employer] EDMS Genesis Byrnes FNP-C WASTE HANDLING TECHNICIAN-Csnw Sarbjit Albarado LVN SINGLE POINTED OPERATOR em Lena Menard RN RN iw Vinod Linder RN RN la1 Sonya Gould Rubi 4 Renetta Kirkland 3 Corrections: (The following items were deleted from the chart) 15:48 15:39 Patient moved to [place] via wheelchair. sw
--- NOTE | 2018-06-30 17:21 | EDPHYS ---
Physician Documentation [facility] Name: Mark Anthony Schultz Age: 42 yrs Sex: Male : 1975 Arrival Date: 06/30/2018 Time: 13:37 Bed 20 Private MD: ED Physician Mono Stern HPI: 06/30 15:30 This 42 yrs old Black Male presents to ER via Ambulatory with complaints of Abdominal snw Pain, Dizziness. 15:30 The patient presents with abdominal pain that is diffuse. Onset: The symptoms/episode snw began/occurred suddenly. The symptoms do not radiate. Associated signs and symptoms: Pertinent positives: fever, nausea, dry heaving. The symptoms are described as constant, steady. Severity of pain: At its worst the pain was moderate. The patient has not experienced similar symptoms in the past. The patient has not recently seen a physician. Historical: - Allergies: 13:41 Ibuprofen; la1 - PMHx: 13:41 "low blood pressure some times"; la1 - Immunization history:: Adult Immunizations up to date. - Social history:: Smoking status: Patient uses tobacco products, smokes one pack cigarettes per day. - Ebola Screening: : No symptoms or risks identified at this time. ROS: 15:27 Constitutional: Negative for fever, chills, and weight loss, Eyes: Negative for injury, snw pain, redness, and discharge, ENT: Negative for injury, pain, and discharge, Neck: Negative for injury, pain, and swelling, Respiratory: Negative for shortness of breath, cough, wheezing, and pleuritic chest pain. 15:27 Cardiovascular: Negative for chest pain, palpitations, and edema, Back: Negative for injury and pain, : Negative for injury, bleeding, discharge, and swelling, MS/Extremity: Negative for injury and deformity, Skin: Negative for injury, rash, and discoloration. 15:27 Abdomen/GI: Positive for abdominal pain, nausea. 15:27 Neuro: Positive for dizziness. Exam: 15:27 Head/Face: Normocephalic, atraumatic. Eyes: Pupils equal round and reactive to light, snw extra-ocular motions intact. Lids and lashes normal. Conjunctiva and sclera are non-icteric and not injected. Cornea within normal limits. Periorbital areas with no swelling, redness, or edema. ENT: Nares patent. No nasal discharge, no septal abnormalities noted. Tympanic membranes are normal and external auditory canals are clear. Oropharynx with no redness, swelling, or masses, exudates, or evidence of obstruction, uvula midline. Mucous membranes moist. Neck: Trachea midline, no thyromegaly or masses palpated, and no cervical lymphadenopathy. Supple, full range of motion without nuchal rigidity, or vertebral point tenderness. No Meningismus. Chest/axilla: Normal chest wall appearance and motion. Nontender with no deformity. No lesions are appreciated. 15:27 Respiratory: Lungs have equal breath sounds bilaterally, clear to auscultation and percussion. No rales, rhonchi or wheezes noted. No increased work of breathing, no retractions or nasal flaring. Back: No spinal tenderness. No costovertebral tenderness. Full range of motion. Skin: Warm, dry with normal turgor. Normal color with no rashes, no lesions, and no evidence of cellulitis. MS/ Extremity: Pulses equal, no cyanosis. Neurovascular intact. Full, normal range of motion. Neuro: Awake and alert, GCS 15, oriented to person, place, time, and situation. Cranial nerves II-XII grossly intact. Motor strength 5/5 in all extremities. Sensory grossly intact. Cerebellar exam normal. Normal gait. Psych: Awake, alert, with orientation to person, place and time. Behavior, mood, and affect are within normal limits. 15:27 Constitutional: The patient appears alert, awake, uncomfortable. 15:27 Cardiovascular: Rate: tachycardic, Rhythm: regular, Pulses: no pulse deficits are appreciated. 15:27 Abdomen/GI: Inspection: distension, that is moderate, Palpation: moderate abdominal tenderness, in all quadrants, worse to lower quads. Vital Signs: 13:41 BP 134 / 90; Pulse 105; Resp 16; Temp 100.0; Pulse Ox 98% on R/A; Weight 99.79 kg; la1 Height 6 ft. 0 in. (182.88 cm); 15:16 BP 122 / 81; Pulse 98; Resp 18; Pulse Ox 100% on R/A; Pain 10/10; em 16:08 BP 131 / 77; Pulse 97; Resp 16; Temp 101.8(O); Pulse Ox 100% on R/A; em 17:21 BP 120 / 65; Pulse 101; Resp 16; Temp 99.9(O); Pulse Ox 97% on R/A; Pain 7/10; em 13:41 Body Mass Index 29.84 (99.79 kg, 182.88 cm) la1 MDM: 14:12 Patient medically screened. snw 17:18 Data reviewed: vital signs, nurses notes. Data interpreted: Pulse oximetry: on room air snw is 100 %. Interpretation: normal. Counseling: I had a detailed discussion with the patient and/or guardian regarding: the historical points, exam findings, and any diagnostic results supporting the discharge/admit diagnosis, lab results, radiology results, the need for outpatient follow up, to return to the emergency department if symptoms worsen or persist or if there are any questions or concerns that arise at home. Special discussion: Based on the patient's Hx, exam, and Dx evaluation, there is no indication for emergent surgery or inpatient Tx. It is understood by the patient/guardian that if the Sx's persist or worsen they need to return immediately for re-evaluation. I have referred the patient to see his PCP for further evaluation of high blood pressure. Based on the history and exam findings, there is no indication for further emergent testing or inpatient evaluation. I discussed with the patient/guardian the need to see the primary care provider for further evaluation of the symptoms. 06/30 14:11 Order name: Basic Metabolic Panel snw 06/30 14:11 Order name: CBC with Diff; Complete Time: 14:58 snw 06/30 14:11 Order name: Creatinine for Radiology; Complete Time: 15:10 snw 06/30 14:11 Order name: Hepatic Function; Complete Time: 15:27 snw 06/30 14:11 Order name: Lipase; Complete Time: 15:27 snw 06/30 14:12 Order name: Basic Metabolic Panel; Complete Time: 15:27 EDMS 06/30 14:11 Order name: IV Saline Lock; Complete Time: 14:26 snw 06/30 14:11 Order name: Labs collected and sent; Complete Time: 14:26 snw 06/30 15:21 Order name: CT Abd/Pelvis - W/Contrast; Complete Time: 16:31 snw Administered Medications: 14: Drug: NS 0.9% 1000 ml Route: IV; Rate: 125 ml/hr; Site: right antecubital; em 15:34 Drug: Phenergan 12.5 mg Route: IVP; Site: right antecubital; iw 16:10 Follow up: Response: No adverse reaction em 15:38 Drug: fentaNYL (PF) 25 mcg Route: IVP; Site: right antecubital; iw 16:10 Follow up: Response: No adverse reaction em 16:50 Drug: Ciprofloxacin 400 mg Volume: 200 ml; Route: IVPB; Infused Over: 60 mins; Site: em right antecubital; 16:50 Drug: NS 0.9% 1000 ml Route: IV; Rate: 1 bolus; Site: right antecubital; em Disposition: 06/30/18 17:20 Discharged to Home. Impression: Diverticulosis of intestine, part unspecified, without perforation or abscess without bleeding, Bilateral inguinal hernia, without obstruction or gangrene, not specified as recurrent, Generalized abdominal pain, Dehydration. - Condition is Stable. - Discharge Instructions: Abdominal Pain, Adult, Dehydration, Adult, Diverticulosis, Fever, Adult, Hernia, Adult, Rehydration, Adult, Secor Diet. - Prescriptions for Bentyl 20 mg Oral Tablet - take 1 tablet by ORAL route every 6 hours As needed; 20 tablet. Cipro 500 mg Oral Tablet - take 1 tablet by ORAL route every 12 hours for 7 days; 14 tablet. - Medication Reconciliation Form, Thank You Letter, Antibiotic Education, Prescription Opioid Use form. - Work release form (06/30/18 17:54). dh3 - Follow up: Private Physician; When: 1 - 2 days; Reason: Recheck today's complaints, Continuance of care, Re-evaluation by your physician. Follow up: Emergency Department; When: As needed; Reason: Worsening of condition. Addendum: 07/02/2018 08:10 Co-signature as Attending Physician, Mono Stern MD I agree with the assessment and k dr plan of care. Signatures: Dispatcher [employer] Mono Cuellar MD MD [facility] Genesis Byrnes, FENCE BUILDER-C FENCE BUILDER-Csnw Sarbjit Albarado, AIRPORT UTILITY WORKER AIRPORT UTILITY WORKER em Lena Menard RN RN Vinod Linder RN RN waRenetta Pfeiffer 3 Corrections: (The following items were deleted from the chart) 06/30 17:47 17:20 06/30/2018 17:20 Discharged to Home. Impression: Diverticulosis of intestine, dh3 part unspecified, without perforation or abscess without bleeding; Bilateral inguinal hernia, without obstruction or gangrene, not specified as recurrent; Generalized abdominal pain; Dehydration. Condition is Stable. Forms are Medication Reconciliation Form, Thank You Letter, Antibiotic Education, Prescription Opioid Use. Follow up: Private Physician; When: 1 - 2 days; Reason: Recheck today's complaints, Continuance of care, Re-evaluation by your physician. Follow up: Emergency Department; When: As needed; Reason: Worsening of condition. snw
== END 2018-06-30 17:47 | disposition home or self-care (01) ==
LOC: ER 13:33
DX: K57.30 Diverticulosis of large intestine without perforation or abscess without bleeding (principal); K40.20 Bilateral inguinal hernia, without obstruction or gangrene, not specified as recurrent; E86.0 Dehydration; F17.290 Nicotine dependence, other tobacco product, uncomplicated; Z88.6 Allergy status to analgesic agent
CPT/HCPCS: 36415; 74177; 80048; 80076; 83690; 85025; 96374; 96375; 99284; J0744; J2550; J3010; J7030; Q9967

== ENCOUNTER 2018-07-13 10:57 | Emergency (ER) | payer SELFPAY ==
[2018-07-13] MEDS ORDERED: HYDROCODONE/APAP 5/325 MG TAB ONE (11:17)
[2018-07-13] MEDS ORDERED: predniSONE 20 MG TAB ONE (11:17)
--- NOTE | 2018-07-13 11:36 | EDPHYS ---
Physician Documentation [facility] Name: Mark Anthony Schultz Age: 42 yrs Sex: Male : 1975 Arrival Date: 07/13/2018 Time: 10:58 Bed 18 Private MD: ED Physician Dion De La Torre HPI: 07/13 11:02 This 42 yrs old Black Male presents to ER via Unassigned with complaints of allergic kb reaction. 11:02 The patient presents with localized swelling. Onset: The symptoms/episode kb began/occurred yesterday. Associated signs and symptoms: The patient has no apparent associated signs or symptoms. Possible causes: antibiotics, penicillin. At home the patient or guardian has treated the symptoms with ice. Severity of symptoms: At their worst the symptoms were moderate in the emergency department the symptoms are unchanged. The patient has experienced a previous episode. The patient has not recently seen a physician. 12:00 Pt reports he had a physical yesterday and the sherrie doing it hurt his ear with the kb otoscope. States he thought he may have had an infection from that so he was going to take an antibiotic that he had at home. Accidentally took the amoxicillin that he is allergic to and started having an allergic reaction. c/o right sided facial swelling and pain. Reports this same thing happened last time he took amoxicillin and he should have thrown it away, but didn't.. Historical: - Allergies: 11:21 Ibuprofen; tw2 11:21 Amoxicillin; tw2 - PMHx: 11:21 "low blood pressure some times"; Diverticulitis; tw2 - PSHx: 11:21 None; tw2 - Immunization history:: Adult Immunizations up to date. - Social history:: Smoking status: . - Ebola Screening: : Patient denies travel to an Ebola-affected area in the 21 days before illness onset. ROS: 11:59 Constitutional: Negative for fever, chills, and weight loss, ENT: Negative for injury, kb pain, and discharge, Neck: Negative for injury, pain, and swelling, Cardiovascular: Negative for chest pain, palpitations, and edema, Respiratory: Negative for shortness of breath, cough, wheezing, and pleuritic chest pain, Abdomen/GI: Negative for abdominal pain, nausea, vomiting, diarrhea, and constipation, MS/Extremity: Negative for injury and deformity, Neuro: Negative for headache, weakness, numbness, tingling, and seizure. 11:59 Skin: Positive for swelling, of the right side of head. Exam: 11:49 Constitutional: This is a well developed, well nourished patient who is awake, alert, kb and in no acute distress. Head/Face: Normocephalic, atraumatic. Neck: Trachea midline, no thyromegaly or masses palpated, and no cervical lymphadenopathy. Supple, full range of motion without nuchal rigidity, or vertebral point tenderness. No Meningismus. Chest/axilla: Normal chest wall appearance and motion. Nontender with no deformity. No lesions are appreciated. Cardiovascular: Regular rate and rhythm with a normal S1 and S2. No gallops, murmurs, or rubs. Normal PMI, no JVD. No pulse deficits. Respiratory: Lungs have equal breath sounds bilaterally, clear to auscultation and percussion. No rales, rhonchi or wheezes noted. No increased work of breathing, no retractions or nasal flaring. Abdomen/GI: Soft, non-tender, with normal bowel sounds. No distension or tympany. No guarding or rebound. No evidence of tenderness throughout. Skin: Warm, dry with normal turgor. Normal color with no rashes, no lesions, and no evidence of cellulitis. MS/ Extremity: Pulses equal, no cyanosis. Neurovascular intact. Full, normal range of motion. Neuro: Awake and alert, GCS 15, oriented to person, place, time, and situation. Cranial nerves II-XII grossly intact. Motor strength 5/5 in all extremities. Sensory grossly intact. Cerebellar exam normal. Normal gait. 11:49 ENT: External ear(s): are unremarkable, Ear canal(s): are normal, TM's: are normal, Nose: is normal, Mouth: is normal, Posterior pharynx: is normal, Dental exam: poor dentition . Vital Signs: 11:05 BP 153 / 96; Pulse 81; Resp 17; Temp 97.9(TE); Pulse Ox 99% on R/A; Weight 86.18 kg tw2 (R); Height 5 ft. 10 in. (177.80 cm); Pain 10/10; 11:05 Body Mass Index 27.26 (86.18 kg, 177.80 cm) tw2 MDM: 10:59 Patient medically screened. kb 11:49 Data reviewed: vital signs, nurses notes. Data interpreted: Pulse oximetry: on room air kb is 99 %. Interpretation: normal. Counseling: I had a detailed discussion with the patient and/or guardian regarding: the historical points, exam findings, and any diagnostic results supporting the discharge/admit diagnosis, the need for outpatient follow up, a family practitioner, to return to the emergency department if symptoms worsen or persist or if there are any questions or concerns that arise at home. Administered Medications: 11:03 Drug: Fleming 5 mg-325 mg 1 tabs Route: PO; tw2 11:41 Follow up: Response: No adverse reaction; Pain is decreased em 11:03 Drug: predniSONE 40 mg Route: PO; tw2 11:41 Follow up: Response: No adverse reaction; Marked relief of symptoms em Disposition: 12:44 Co-signature as Attending Physician, Dion De La Torre MD. rn Disposition: 07/13/18 11:35 Discharged to Home. Impression: Allergy status to other antibiotic agents status. - Condition is Stable. - Discharge Instructions: Allergies, [id number]. - Prescriptions for Prednisone 20 mg Oral Tablet - take 1 tablet by ORAL route once daily for 5 days; 5 tablet. - Medication Reconciliation Form, Thank You Letter, Antibiotic Education, Prescription Opioid Use form. - Follow up: Emergency Department; When: As needed; Reason: Worsening of condition. Follow up: Private Physician; When: 2 - 3 days; Reason: Recheck today's complaints, Continuance of care, Re-evaluation by your physician. Signatures: Genet Young, BUS VAN DRIVER-C BUS VAN DRIVER-Zachariahb Sarbjit Albarado, GAS MASK INSPECTOR GAS MASK INSPECTOR em Dion De La Torre MD MD rn Lili Garland RN RN tw2 Corrections: (The following items were deleted from the chart) 11:42 11:35 07/13/2018 11:35 Discharged to Home. Impression: Allergy status to other em antibiotic agents status. Condition is Stable. Forms are Medication Reconciliation Form, Thank You Letter, Antibiotic Education, Prescription Opioid Use. Follow up: Emergency Department; When: As needed; Reason: Worsening of condition. Follow up: Private Physician; When: 2 - 3 days; Reason: Recheck today's complaints, Continuance of care, Re-evaluation by your physician. kb
--- NOTE | 2018-07-13 11:36 | ER ---
Nurse's Notes [facility] Name: Mark Anthony Schultz Age: 42 yrs Sex: Male : 1975 Arrival Date: 07/13/2018 Time: 10:58 Bed 18 Private MD: Diagnosis: Allergy status to other antibiotic agents status Presentation: 07/13 10:51 Presenting complaint: EMS states: pt states he was given abx for diverticulitis 2 weeks tw2 ago and he had a previous rx for amoxicillin which he is allergic to and he thinks he took that yesterday afternoon about 4 pm, then this morning he took a benadryl at 4am the swelling has gone down but he is still having pain to LEFT ear and side of face. Transition of care: patient was not received from another setting of care. Onset of symptoms was July 13, 2018. Risk Assessment: Do you want to hurt yourself or someone else? Patient reports no desire to harm self or others. Initial Sepsis Screen: Does the patient meet any 2 criteria? No. Patient's initial sepsis screen is negative. Does the patient have a suspected source of infection? No. Patient's initial sepsis screen is negative. Care prior to arrival: None. 10:51 Method Of Arrival: EMS: [facility] tw2 10:51 Acuity: PAMELA 4 tw2 Triage Assessment: 10:51 General: Appears in no apparent distress. Behavior is calm, cooperative, appropriate tw2 for age. Pain: Complains of pain in left ear. EENT: Reports pain in left ear. Neuro: Level of Consciousness is awake, alert, obeys commands, Oriented to person, place, time. Cardiovascular: Patient's skin is warm and dry. Respiratory: Airway is patent Respiratory effort is even, unlabored, Respiratory pattern is regular, symmetrical. GI: No signs and/or symptoms were reported involving the gastrointestinal system. : No signs and/or symptoms were reported regarding the genitourinary system. Derm: No signs and/or symptoms reported regarding the dermatologic system. Musculoskeletal: Range of motion: intact in all extremities. Historical: - Allergies: 11:21 Ibuprofen; tw2 11:21 Amoxicillin; tw2 - PMHx: 11:21 "low blood pressure some times"; Diverticulitis; tw2 - PSHx: 11:21 None; tw2 - Immunization history:: Adult Immunizations up to date. - Social history:: Smoking status: . - Ebola Screening: : Patient denies travel to an Ebola-affected area in the 21 days before illness onset. Screenin:20 Abuse screen: Denies threats or abuse. Nutritional screening: No deficits noted. tw2 Tuberculosis screening: No symptoms or risk factors identified. Fall Risk None identified. Assessment: 11:21 Reassessment: see triage assessment. tw2 Vital Signs: 11:05 BP 153 / 96; Pulse 81; Resp 17; Temp 97.9(TE); Pulse Ox 99% on R/A; Weight 86.18 kg tw2 (R); Height 5 ft. 10 in. (177.80 cm); Pain 10; 11:05 Body Mass Index 27.26 (86.18 kg, 177.80 cm) tw2 ED Course: 10:51 Arm band placed on. tw2 10:52 Bed in low position. Call light in reach. tw2 10:58 Patient arrived in ED. tw2 10:59 Genet Young FNP-C is [facility]. kb 10:59 Dion De La Torre MD is Attending Physician. kb 11:02 Lili Garland, EDGAR is Primary Nurse. tw2 11:05 Triage completed. tw2 11:21 Report given to ADAN Schaffer. tw2 11:42 No provider procedures requiring assistance completed. Patient did not have IV access em during this emergency room visit. Administered Medications: 11:03 Drug: [place] 5 mg-325 mg 1 tabs Route: PO; tw2 11:41 Follow up: Response: No adverse reaction; Pain is decreased em 11:03 Drug: predniSONE 40 mg Route: PO; tw2 11:41 Follow up: Response: No adverse reaction; Marked relief of symptoms em Outcome: 11:35 Discharge ordered by . kb 11:42 Discharged to home ambulatory. em 11:42 Condition: stable 11:42 Discharge instructions given to patient, Instructed on discharge instructions, follow up and referral plans. medication usage, Demonstrated understanding of instructions, follow-up care, medications, Prescriptions given X 1. 11:42 Patient left the ED. em Signatures: Genet Young FNP-C FNP-Ckb Munoz, Edgar, LVN LVN em Lili Garland, EDGAR RN tw2
== END 2018-07-13 11:42 | disposition home or self-care (01) ==
LOC: ER 10:57
DX: T36.95XA Adverse effect of unspecified systemic antibiotic, initial encounter (principal); Z88.1 Allergy status to other antibiotic agents; Z88.6 Allergy status to analgesic agent
CPT/HCPCS: 99283; J7512

== ENCOUNTER 2018-08-12 11:14 | Emergency (ER) | payer SELFPAY ==
--- NOTE | 2018-08-12 11:49 | EDPHYS ---
Physician Documentation [facility] Name: Mark Anthony Schultz Age: 42 yrs Sex: Male : 1975 Arrival Date: 08/12/2018 Time: 11:15 Bed 12 Private MD: ED Physician Zhang Viera HPI: 08/12 11:39 This 42 yrs old Black Male presents to ER via Ambulatory with complaints of Rash. cp 11:39 The patient's rash thought to be caused by an unknown cause. The rash is located on the cp body diffusely. The rash can be described as urticarial, itchy. Onset: The symptoms/episode began/occurred 3 day(s) ago. Associated signs and symptoms: Pertinent positives: itching, Pertinent negatives: burning sensation, difficulty breathing, fever, swelling of lips, swelling of throat, swelling of tongue. Severity of symptoms: in the emergency department the symptoms are unchanged despite home interventions. Treatment given at home: Benadryl. Patient reports he was changing drywall at Aunt's home due to damage caused by possums prior to developing rash. Historical: - Allergies: 11:22 Amoxicillin; aa5 11:22 Ibuprofen; aa5 - PMHx: 11:22 "low blood pressure some times"; Diverticulitis; aa5 - PSHx: 11:22 None; aa5 - Immunization history:: Adult Immunizations unknown. - Social history:: Smoking status: Patient uses tobacco products, smokes one pack cigarettes per day. - Ebola Screening: : No symptoms or risks identified at this time. ROS: 11:43 Eyes: Negative for injury, pain, redness, and discharge. cp 11:43 Constitutional: Negative for body aches, chills, fever, poor PO intake. 11:43 ENT: Negative for drainage from ear(s), ear pain, sore throat, difficulty swallowing, difficulty handling secretions. 11:43 Cardiovascular: Negative for chest pain, palpitations. 11:43 Respiratory: Negative for cough, shortness of breath, wheezing. 11:43 Abdomen/GI: Negative for abdominal pain, nausea, vomiting, and diarrhea. 11:43 Skin: Positive for rash, diffusely, Negative for cellulitis. 11:43 Neuro: Negative for altered mental status, dizziness, headache, weakness. 11:43 All other systems are negative. Exam: 11:45 Constitutional: The patient appears in no acute distress, alert, awake, non-toxic, well cp developed, well nourished. 11:45 Eyes: Periorbital structures: appear normal, Conjunctiva: normal, Lids and lashes: cp appear normal, bilaterally. 11:45 ENT: External ear(s): are unremarkable, Nose: is normal, Mouth: Lips: moist, Oral mucosa: pink and intact, moist. 11:45 Cardiovascular: Rate: normal, Rhythm: regular. 11:45 Respiratory: the patient does not display signs of respiratory distress, Respirations: normal, no use of accessory muscles, no retractions, no splinting, no tachypnea, labored breathing, is not present, Breath sounds: are clear throughout, no decreased breath sounds, no stridor, no wheezing. 11:45 Skin: rash can be described as urticarial, on the right arm and left arm and low back and lower abdomen. Vital Signs: 11:21 Temp 98.0(TE); aa5 11:23 BP 109 / 82; Pulse 85; Resp 16 S; Pulse Ox 97% on R/A; Weight 104.33 kg (R); Height 6 aa5 ft. 0 in. (182.88 cm) (R); Pain 0/10; 11:23 Body Mass Index 31.19 (104.33 kg, 182.88 cm) aa5 MDM: 11:26 Patient medically screened. cp 11:48 Data reviewed: vital signs, nurses notes, and as a result, I will discharge patient. cp 11:48 Differential diagnosis: allergic reaction, contact dermatitis, cellulitis. Counseling: cp I had a detailed discussion with the patient and/or guardian regarding: the historical points, exam findings, and any diagnostic results supporting the discharge/admit diagnosis, to return to the emergency department if symptoms worsen or persist or if there are any questions or concerns that arise at home. Administered Medications: No medications were administered Disposition: 12:15 Chart complete. cp 18:57 Co-signature as Attending Physician, Zhang Viera MD Available for consultation at ps1 all times . Disposition: 08/12/18 11:48 Discharged to Home. Impression: Urticaria, unspecified. - Condition is Stable. - Discharge Instructions: Hives. - Prescriptions for Prednisone 20 mg Oral Tablet - take 3 tablet by ORAL route once daily for 5 days; 15 tablet. Hydrocortisone 0.5 % Topical Cream - apply 1 application by TOPICAL route every 12 hours As needed; 30 gram. Pepcid 20 mg Oral Tablet - take 1 tablet by ORAL route once daily for 10 days; 10 tablet. - Medication Reconciliation Form, Thank You Letter, Antibiotic Education, Prescription Opioid Use form. - Follow up: Private Physician; When: 2 - 3 days; Reason: Worsening of condition. - Problem is new. - Symptoms have improved. Signatures: Mary Andrade RN RN aa5 Dennis Vargas PA PA cp Zhang Viera MD MD ps1 Corrections: (The following items were deleted from the chart) 11:57 11:48 08/12/2018 11:48 Discharged to Home. Impression: Urticaria, unspecified. aa5 Condition is Stable. Forms are Medication Reconciliation Form, Thank You Letter, Antibiotic Education, Prescription Opioid Use. Follow up: Private Physician; When: 2 - 3 days; Reason: Worsening of condition. Problem is new. Symptoms have improved. cp
--- NOTE | 2018-08-12 11:49 | ER ---
Nurse's Notes [facility] Name: Mark Anthony Schultz Age: 42 yrs Sex: Male : 1975 Arrival Date: 08/12/2018 Time: 11:15 Bed 12 Private MD: Diagnosis: Urticaria, unspecified Presentation: 08/12 11:21 Presenting complaint: Patient states: "I have this rash all over my body and it's been aa5 there since Sunday". Pt reports rash is itchy. Transition of care: patient was not received from another setting of care. Onset of symptoms was August 2018. Risk Assessment: Do you want to hurt yourself or someone else? Patient reports no desire to harm self or others. Initial Sepsis Screen: Does the patient meet any 2 criteria? No. Patient's initial sepsis screen is negative. Does the patient have a suspected source of infection? No. Patient's initial sepsis screen is negative. Care prior to arrival: None. 11:21 Acuity: PAMELA 5 aa5 11:21 Method Of Arrival: Ambulatory aa5 Historical: - Allergies: 11:22 Amoxicillin; aa5 11:22 Ibuprofen; aa5 - PMHx: 11:22 "low blood pressure some times"; Diverticulitis; aa5 - PSHx: 11:22 None; aa5 - Immunization history:: Adult Immunizations unknown. - Social history:: Smoking status: Patient uses tobacco products, smokes one pack cigarettes per day. - Ebola Screening: : No symptoms or risks identified at this time. Screenin:25 Abuse screen: Denies threats or abuse. Nutritional screening: No deficits noted. aa5 Tuberculosis screening: No symptoms or risk factors identified. Fall Risk None identified. Assessment: 11:25 General: Appears comfortable, Behavior is calm, cooperative. Pain: Denies pain. Neuro: aa5 Level of Consciousness is awake, alert, obeys commands, Oriented to person, place, time, situation. Cardiovascular: Heart tones S1 S2 present Rhythm is regular. Respiratory: Airway is patent Respiratory effort is even, unlabored, Respiratory pattern is regular, symmetrical. GI: No signs and/or symptoms were reported involving the gastrointestinal system. : No signs and/or symptoms were reported regarding the genitourinary system. EENT: No signs and/or symptoms were reported regarding the EENT system. Derm: Skin is dry, Skin is normal, Skin temperature is warm Rash noted that is itchy, red, raised, on chest, abdomen, right arm and left arm. Musculoskeletal: Range of motion: intact in all extremities. 11:57 Neuro: Level of Consciousness is awake, alert, obeys commands, Oriented to person, aa5 place, time, situation. Respiratory: Airway is patent Respiratory effort is even, unlabored, Respiratory pattern is regular, symmetrical. Derm: Skin is dry, Skin is normal, Skin temperature is warm. Vital Signs: 11:21 Temp 98.0(TE); aa5 11:23 BP 109 / 82; Pulse 85; Resp 16 S; Pulse Ox 97% on R/A; Weight 104.33 kg (R); Height 6 aa5 ft. 0 in. (182.88 cm) (R); Pain 0/10; 11:23 Body Mass Index 31.19 (104.33 kg, 182.88 cm) aa5 ED Course: 11:15 Patient arrived in ED. rg4 11:20 Arm band placed on. aa5 11:20 Patient has correct armband on for positive identification. aa5 11:22 Triage completed. aa5 11:23 Mary Andrade RN is Primary Nurse. aa5 11:24 Dennis Vargas PA is PHCP. cp 11:25 Zhang Viera MD is Attending Physician. cp 11:57 No provider procedures requiring assistance completed. Patient did not have IV access aa5 during this emergency room visit. Administered Medications: No medications were administered Outcome: 11:48 Discharge ordered by MD. cp 11:57 Discharged to home ambulatory. aa5 11:57 Condition: stable 11:57 Discharge instructions given to patient, Instructed on discharge instructions, follow up and referral plans. medication usage, Demonstrated understanding of instructions, follow-up care, medications, Prescriptions given X 3. 11:57 Patient left the ED. aa5 Signatures: Mary Andrade RN RN aa5 Dennis Vargas PA PA cp Garcia, Rubi rg4 Corrections: (The following items were deleted from the chart) 16:42 11:57 Reassessment: Patient is alert, oriented x 3, equal unlabored respirations, skin aa5 warm/dry/pink. aa5
== END 2018-08-12 11:57 | disposition home or self-care (01) ==
LOC: ER 11:14
DX: L50.9 Urticaria, unspecified (principal); Z88.6 Allergy status to analgesic agent; Z88.0 Allergy status to penicillin; F17.210 Nicotine dependence, cigarettes, uncomplicated
CPT/HCPCS: 99282

== ENCOUNTER 2019-01-09 23:49 | Emergency (ER) | payer OTHER, SELFPAY ==
--- NOTE | 2019-01-10 00:46 | EDPHYS ---
Physician Documentation [facility] Name: Mark Anthony Schultz Age: 43 yrs Sex: Male : 1975 Arrival Date: 01/09/2019 Time: 23:52 Bed 5 Private MD: NELLA Physician Dennis Buckner HPI: 01/10 00:40 This 43 yrs old Black Male presents to ER via Ambulatory with complaints of Knee Pain. gayle 00:40 The patient presents with decreased range of motion, pain, tenderness. The complaints gayle affect the lateral aspect of right knee and right knee. Context: The problem was sustained at an industrial site, resulted from twisting of the extremity. Onset: The symptoms/episode began/occurred just prior to arrival. Modifying factors: The symptoms are alleviated by nothing. remaining still, the symptoms are aggravated by movement, bending knee. Associated signs and symptoms: The patient has no apparent associated signs or symptoms. Historical: - Allergies: 00:02 Amoxicillin; aa1 00:02 Ibuprofen; aa1 - Home Meds: 00:02 None [Active]; aa1 - PMHx: 00:02 "low blood pressure some times"; Diverticulitis; aa1 - PSHx: 00:02 None; aa1 - Immunization history:: Flu vaccine is not up to date. - Social history:: Smoking status: Patient/guardian denies using tobacco. - Ebola Screening: : No symptoms or risks identified at this time. - Family history:: not pertinent. ROS: 00:40 Constitutional: Negative for fever, chills, and weight loss, Eyes: Negative for injury, gayle pain, redness, and discharge, ENT: Negative for injury, pain, and discharge, Neck: Negative for injury, pain, and swelling, Cardiovascular: Negative for chest pain, palpitations, and edema, Respiratory: Negative for shortness of breath, cough, wheezing, and pleuritic chest pain, Abdomen/GI: Negative for abdominal pain, nausea, vomiting, diarrhea, and constipation, Back: Negative for injury and pain, : Negative for injury, bleeding, discharge, and swelling, Skin: Negative for injury, rash, and discoloration, Neuro: Negative for headache, weakness, numbness, tingling, and seizure, Psych: Negative for depression, anxiety, suicide ideation, homicidal ideation, and hallucinations, Allergy/Immunology: Negative for hives, rash, and allergies, Endocrine: Negative for neck swelling, polydipsia, polyuria, polyphagia, and marked weight changes, Hematologic/Lymphatic: Negative for swollen nodes, abnormal bleeding, and unusual bruising. 00:40 MS/extremity: Positive for injury or acute deformity, decreased range of motion, of the lateral aspect of right knee, posterior aspect of right knee, medial aspect of right knee and right knee. Exam: 00:40 Constitutional: This is a well developed, well nourished patient who is awake, alert, gayle and in no acute distress. Head/Face: Normocephalic, atraumatic. Eyes: Pupils equal round and reactive to light, extra-ocular motions intact. Lids and lashes normal. Conjunctiva and sclera are non-icteric and not injected. Cornea within normal limits. Periorbital areas with no swelling, redness, or edema. ENT: Nares patent. No nasal discharge, no septal abnormalities noted. Tympanic membranes are normal and external auditory canals are clear. Oropharynx with no redness, swelling, or masses, exudates, or evidence of obstruction, uvula midline. Mucous membranes moist. Neck: Trachea midline, no thyromegaly or masses palpated, and no cervical lymphadenopathy. Supple, full range of motion without nuchal rigidity, or vertebral point tenderness. No Meningismus. Chest/axilla: Normal chest wall appearance and motion. Nontender with no deformity. No lesions are appreciated. Cardiovascular: Regular rate and rhythm with a normal S1 and S2. No gallops, murmurs, or rubs. Normal PMI, no JVD. No pulse deficits. Respiratory: Lungs have equal breath sounds bilaterally, clear to auscultation and percussion. No rales, rhonchi or wheezes noted. No increased work of breathing, no retractions or nasal flaring. Abdomen/GI: Soft, non-tender, with normal bowel sounds. No distension or tympany. No guarding or rebound. No evidence of tenderness throughout. Back: No spinal tenderness. No costovertebral tenderness. Full range of motion. Male : Normal genitalia with no discharge or lesions. Skin: Warm, dry with normal turgor. Normal color with no rashes, no lesions, and no evidence of cellulitis. Neuro: Awake and alert, GCS 15, oriented to person, place, time, and situation. Cranial nerves II-XII grossly intact. Motor strength 5/5 in all extremities. Sensory grossly intact. Cerebellar exam normal. Normal gait. Psych: Awake, alert, with orientation to person, place and time. Behavior, mood, and affect are within normal limits. 00:40 Musculoskeletal/extremity: Extremities: all appear grossly normal, with no appreciated pain with palpation, ROM: limited active range of motion, limited passive range of motion, limited active range of motion due to pain, limited passive range of motion due to pain, Circulation is intact in all extremities. Sensation intact. Compartment Syndrome exam of affected extremity: is normal. Vital Signs: 00:02 BP 120 / 79; Pulse 89; Resp 18; Temp 98.0; Pulse Ox 95% on R/A; Weight 97.98 kg; Height aa1 6 ft. 0 in. (182.88 cm); Pain 9/10; 01:10 BP 118 / 75; Pulse 80; Resp 16; Temp 98.5; Pulse Ox 99% on R/A; rr5 00:02 Body Mass Index 29.29 (97.98 kg, 182.88 cm) aa MDM: 00:16 Patient medically screened. [facility] 00:40 Data reviewed: vital signs, nurses notes, radiologic studies. [facility] 01/10 00:05 Order name: Knee Right 3 View XRAY [facility] 01/10 00:39 Order name: Ice pack; Complete Time: 01:22 [facility] 01/10 00:39 Order name: Knee Immobilizer; Complete Time: 01:22 [facility] 01/10 00:39 Order name: Crutches; Complete Time: 01:22 [facility] Administered Medications: 01:47 Not Given (patient will drive himself home, nobody with the patient..): [place] 10 mg-325 rr5 mg 1 tabs PO once; RASS on ADMIN: Combtv4, Very Agttd3, Agttd2, Rstlss1, AlertClm0, Drwsy-1, Lt Sdtn-2, Mod Sdtn-3, Dp Sdtn-4, UnArsble-5 Disposition: 01/10/19 00:45 Discharged to Home. Impression: Pain in right knee, Sprain of other specified parts of right knee. - Condition is Stable. - Discharge Instructions: Joint Pain, Musculoskeletal Pain, Knee Pain, Arthritis, [id number], Knee Pain, [id number], Joint Pain, Qsbw-nn-Hssg. - Prescriptions for Tylenol- Codeine #3 300-30 mg Oral Tablet - take 2 tablets by ORAL route every 6 hours As needed; 24 tablet. - Medication Reconciliation Form, Thank You Letter, Antibiotic Education, Prescription Opioid Use form. - Follow up: Private Physician; When: 2 - 3 days; Reason: Recheck today's complaints, Continuance of care, Re-evaluation by your physician. Follow up: Miles Funes MD; When: 2 - 3 days; Reason: Recheck today's complaints, Re-evaluation by your physician. - Problem is new. - Symptoms have improved. Signatures: Dispatcher [employer] Alexandria Mosley RN RN aa1 Dennis Buckner MD MD cha Roque, Raymond, RN RN rr5 Corrections: (The following items were deleted from the chart) 01:27 00:45 01/10/2019 00:45 Discharged to Home. Impression: Pain in right knee; Sprain of rr5 other specified parts of right knee. Condition is Stable. Forms are Medication Reconciliation Form, Thank You Letter, Antibiotic Education, Prescription Opioid Use. Follow up: Private Physician; When: 2 - 3 days; Reason: Recheck today's complaints, Continuance of care, Re-evaluation by your physician. Follow up: Miles Funes; When: 2 - 3 days; Reason: Recheck today's complaints, Re-evaluation by your physician. Problem is new. Symptoms have improved. gayle
--- NOTE | 2019-01-10 00:46 | ER ---
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 States, "I aa1 felt a pop when it happened." C/O pain with weight bearing. Transition of care: patient was not received from another setting of care. Onset of symptoms was January 10, 2019. Risk Assessment: Do you want to hurt yourself or someone else? Patient reports no desire to harm self or others. Initial Sepsis Screen: Does the patient meet any 2 criteria? No. Patient's initial sepsis screen is negative. Does the patient have a suspected source of infection? No. Patient's initial sepsis screen is negative. Care prior to arrival: None. 00:00 Method Of Arrival: Ambulatory aa1 00:00 Acuity: PAMELA 4 aa1 Triage Assessment: 00:02 General: Appears in no apparent distress. comfortable, Behavior is calm, cooperative, aa1 appropriate for age. 00:20 Pain: Complains of pain in right knee. EENT: No signs and/or symptoms were reported ak1 regarding the EENT system. Neuro: Level of Consciousness is awake, alert, obeys commands, Moves all extremities. Cardiovascular: No deficits noted. Respiratory: Airway is patent Respiratory effort is even, unlabored. GI: No signs and/or symptoms were reported involving the gastrointestinal system. : No signs and/or symptoms were reported regarding the genitourinary system. Derm: No signs and/or symptoms reported regarding the dermatologic system. Musculoskeletal: Range of motion: limited in right knee Reports pain in right knee. Historical: - Allergies: 00:02 Amoxicillin; aa1 00:02 Ibuprofen; aa1 - Home Meds: 00:02 None [Active]; aa1 - PMHx: 00:02 "low blood pressure some times"; Diverticulitis; aa1 - PSHx: 00:02 None; aa1 - Immunization history:: Flu vaccine is not up to date. - Social history:: Smoking status: Patient/guardian denies using tobacco. - Ebola Screening: : No symptoms or risks identified at this time. - Family history:: not pertinent. Screenin:19 Abuse screen: Denies threats or abuse. Denies injuries from another. Nutritional ak1 screening: No deficits noted. Tuberculosis screening: No symptoms or risk factors identified. Fall Risk None identified. Assessment: 00:15 General: Appears in no apparent distress. comfortable, Behavior is calm, cooperative, rr5 appropriate for age. Pain: Complains of pain in right knee Pain does not radiate. Pain Quality of pain is described as aching, Pain began suddenly, Is intermittent. Neuro: Level of Consciousness is awake, alert, obeys commands, Oriented to person, place, time, situation, Appropriate for age. Cardiovascular: Capillary refill < 3 seconds Patient's skin is warm and dry. Respiratory: Airway is patent Respiratory effort is even, unlabored, Respiratory pattern is regular, symmetrical. GI: No signs and/or symptoms were reported involving the gastrointestinal system. : No signs and/or symptoms were reported regarding the genitourinary system. EENT: No signs and/or symptoms were reported regarding the EENT system. Derm: Skin is intact, is healthy with good turgor, Skin temperature is warm. Musculoskeletal: Capillary refill < 3 seconds, Reports pain in right knee. 00:21 Reassessment: Patient appears in no apparent distress at this time. No changes from ak1 previously documented assessment. 01:24 Reassessment: Patient appears in no apparent distress at this time. Patient is alert, rr5 oriented x 3, equal unlabored respirations, skin warm/dry/pink. discharge instruction given and explained without complaints made, demonstrated crutch walking. verbalized understading. Vital Signs: 00:02 BP 120 / 79; Pulse 89; Resp 18; Temp 98.0; Pulse Ox 95% on R/A; Weight 97.98 kg; Height aa1 6 ft. 0 in. (182.88 cm); Pain 9/10; 01:10 BP 118 / 75; Pulse 80; Resp 16; Temp 98.5; Pulse Ox 99% on R/A; rr5 00:02 Body Mass Index 29.29 (97.98 kg, 182.88 cm) aa1 ED Course: 01/09 23:52 Patient arrived in ED. as 01/10 00:02 Triage completed. aa1 00:02 Arm band placed on right wrist. Patient placed in waiting room, Patient notified of aa1 wait time. 00:16 Dennis Buckner MD is Attending Physician. [facility] 00:19 Audrey Whitaker, RN is Primary Nurse. ak1 00:19 No provider procedures requiring assistance completed. ak1 00:21 Patient has correct armband on for positive identification. Bed in low position. Call ak1 light in reach. Side rails up X 1. 00:43 Miles Funes MD is Referral Physician. gayle 01:10 Patient did not have IV access during this emergency room visit. Crutch training done. rr5 Knee immobilizer applied on right knee. crutches. 01:39 Knee Right 3 View XRAY In Process Unspecified. EDMS Administered Medications: 01:47 Not Given (patient will drive himself home, nobody with the patient..): Mariposa 10 mg-325 rr5 mg 1 tabs PO once; RASS on ADMIN: Combtv4, Very Agttd3, Agttd2, Rstlss1, AlertClm0, Drwsy-1, Lt Sdtn-2, Mod Sdtn-3, Dp Sdtn-4, UnArsble-5 Outcome: 00:45 Discharge ordered by . gayle 01:23 Discharged to home ambulatory, with crutches. rr5 01:23 Condition: stable 01:23 Discharge instructions given to patient, Instructed on discharge instructions, follow up and referral plans. medication usage, crutch walking, Demonstrated understanding of instructions, follow-up care, medications, crutch walking, Prescriptions given X 1. 01:27 Patient left the ED. rr5 Signatures: Dispatcher [employer] EDMS Alexandria Hendrickson RN RN aa1 Dennis Buckner MD MD cha Martinez, Amelia as Audrey Whitaker, RN RN akDominic Canseco RN RN rr5
[2019-01-10] MEDS ORDERED: HYDROCODONE/APAP 10/325 TAB ONE (01:00)
[2019-01-10 03:26] VITALS: BP 118/75; TEMP 98.5; O2SAT 99
--- NOTE | 2019-01-10 08:32 | RAD REPORT ---
EXAM DESCRIPTION: RAD - Knee Right 3 View - 01/10/2019 1:39 am CLINICAL HISTORY: PAIN COMPARISON: No comparisons FINDINGS: No acute fracture or dislocation suspected. No suprapatellar joint effusion. Small radiode nsities are seen anterior to the patellar tendon in the soft tissues. .
== END 2019-01-10 01:27 | disposition home or self-care (01) ==
LOC: ER 23:49
DX: S83.8X1A Sprain of other specified parts of right knee, initial encounter (principal); X50.1XXA Overexertion from prolonged static or awkward postures, initial encounter; Y93.9 Activity, unspecified; Y92.89 Other specified places as the place of occurrence of the external cause; Y99.8 Other external cause status; Z88.1 Allergy status to other antibiotic agents; Z88.6 Allergy status to analgesic agent
CPT/HCPCS: 99283

== ENCOUNTER 2021-09-07 23:29 | Emergency (ER) | payer OTHER ==
--- OUTSIDE RECORDS SUMMARY | 2021-09-07 23:32 | XMS REPORT | Continuity of Care Document ---
:1975 Author Organization [facility] t Address [address] [place] [address] Care Team Providers Name Role Phone Elif Evans Attending Clinician Lab, Adc Fam Pob I Attending Clinician Unavailable FARSHAD CARDOZA Attending Clinician Unavailable Doctor Unassigned, [place] Attending Clinician Unavailable Payers Payer Name Policy Type Policy Number Effective Date Expiration Date S michael CIGKRISTINA II [id number] 2019 00:00:00 Problems This patient has no known problems. Allergies, Adverse Reactions, Alerts Allergy Allergy Status Severity Reaction(s) Onset Inactive Treating Comm ents Source Name Type Date Date Clinician IBUPROFE DRUG Active N/V 2017-02 [facility] N INGREDI 0-10 ity of 00:00: [address] Medications This patient has no known medications. Procedures This patient has no known procedures. Encounters Start End Encounter Admission Attending Care Care Encounter Source Date/Time Date/Time Type Type Clinicians Facility Department ID 2019-10-02 2019-10-02 Outpatient R [facility] [id number] Univers 08:00:00 08:00:00 [id number] ity [facility] 2019-10-02 2019-10-02 Outpatient R [facility] [id number] Univers [facility]:00[facility]00 [facility]-09-15 2019-09-15 Caro Meño [facility] [id number] 00:00:00 00:00:00 [facility] [id number] [place] [id number] Professio [phone] nal [address] 2019-09-14 2019-09-14 Laboratory Lab, [facility] [id number] 11:56:56 12:16:56 Only Fam Pob I Health [id number] [place] [id number] Professio [phone] nal [address] 2019-09-14 2019-09-14 Outpatient R [facility] [id number] Univers 12:00:00 12:00:00 [id number] [facility] 2019-09-14 2019-09-14 Outpatient [facility] [id number] Univers 12:00:00 12:00:00 FARSHAD [facility] 2019-09-14 2019-09-14 Letter Doctor KAITLYN [id number] 00:00:00 00:00:00 (Out) Unassigned, [place] [id number] [place] [id number] 2019-08-25 2019-08-25 Laboratory Lab, [facility] [id number] 08:23:13 08:43:13 Only Fam Pob I Health [id number] [place] [id number] Professio [phone] nal [facility] Office Building One 2019-08-25 2019-08-25 Outpatient R [facility] [id number] Univers 08:20:00 08:20:00 FARSHAD [facility] 2019-08-25 2019-08-25 Letter Doctor KAITLYN [id number] 00:00:00 00:00:00 (Out) Unassigned, [place] [id number] [place] [facility] [id number] Results This patient has no known results.
--- NOTE | 2021-09-08 00:10 | EDPHYS ---
Physician Documentation [facility] Name: Mark Anthony Schultz Age: 45 yrs Sex: Male : 1975 Arrival Date: 09/07/2021 Time: 23:34 Bed Waiting Private MD: ED Physician Dion De La Torre HPI: 09/08 00:12 This 45 yrs old Black Male presents to ER via Ambulatory with complaints of Toothache. kb 00:12 The patient presents with pain, redness, swelling. The problem is located in the left kb jaw. Onset: The symptoms/episode began/occurred yesterday. Duration: The symptoms are continuous. Modifying factors: The symptoms are alleviated by nothing, the symptoms are aggravated by nothing. Associated signs and symptoms: Pertinent positives: pain, redness in area, swelling. Severity of symptoms: At their worst the symptoms were mild, in the emergency department the symptoms are unchanged. The patient has experienced similar episodes in the past, a few times. The patient has not recently seen a physician. Historical: - Allergies: 09/07 23:57 Ibuprofen; tw5 - PMHx: 23:57 Diverticulitis; "low blood pressure some times"; tw5 - Immunization history:: Flu vaccine is not up to date. - Social history:: Smoking status: Patient reports the use of cigarette tobacco products, smokes one-half pack cigarettes per day, Patient uses street drugs. ROS: 09/08 00:11 Respiratory: Negative for shortness of breath, cough, wheezing, and pleuritic chest kb pain. Constitutional: Positive for fever. ENT: Positive for dental pain. All other systems are negative. Exam: 00:11 Head/Face: Normocephalic, atraumatic. Cardiovascular: Regular rate and rhythm with a kb normal S1 and S2. No gallops, murmurs, or rubs. No pulse deficits. Respiratory: Respirations even and unlabored. No increased work of breathing. Talking in full sentences Abdomen/GI: Soft, non-tender. No distention Skin: Warm, dry with normal turgor. Normal color. MS/ Extremity: Pulses equal, no cyanosis. Neurovascular intact. Full, normal range of motion. Neuro: Awake and alert, GCS 15, oriented to person, place, time, and situation. Moves all extremities. Normal gait. Psych: Awake, alert, with orientation to person, place and time. Behavior, mood, and affect are within normal limits. 00:11 Constitutional: The patient appears alert, awake, drowsy 00:11 ENT: Dental exam: gum swelling, that is mild, specifically in the lower left first molar (#19) and lower left second bicuspid (#20), pain, swelling to left lower jaw. Vital Signs: 09/07 23:59 BP 135 / 102; Pulse 101; Resp 18; Temp 98.6; Pulse Ox 98% on R/A; Weight 108.86 kg; tw5 Height 6 ft. 0 in. (182.88 cm); Pain 8/10; 23:59 Body Mass Index 32.55 (108.86 kg, 182.88 cm) tw5 MDM: 09/08 00:09 Patient medically screened. kb 00:11 Data reviewed: vital signs, nurses notes. Data interpreted: Pulse oximetry: on room air kb is 98 %. Interpretation: normal. Counseling: I had a detailed discussion with the patient and/or guardian regarding: the historical points, exam findings, and any diagnostic results supporting the discharge/admit diagnosis, the need for outpatient follow up, a dentist, to return to the emergency department if symptoms worsen or persist or if there are any questions or concerns that arise at home. Administered Medications: 00:17 Drug: Rocephin (cefTRIAXone) 1 grams Route: IM; Site: right ventrogluteal; tw5 00:17 Follow up: Response: No adverse reaction; Medication administered at discharge. tw5 Disposition: 00:20 Co-signature as Attending Physician, Dion De La Torre MD. rn Disposition Summary: 09/08/21 00:09 Discharge Ordered Location: Home kb Condition: Stable kb Diagnosis - Periapical abscess without sinus kb Followup: kb - With: Emergency Department - When: As needed - Reason: Worsening of condition Followup: kb - With: Private Physician - When: 2 - 3 days - Reason: Recheck today's complaints, Continuance of care, Re-evaluation by your physician Discharge Instructions: - Discharge Summary Sheet kb - Dental Pain, Ejws-[id number] kb - Dental Abscess, Nigp-hw-Wjkp kb Forms: - Medication Reconciliation Form kb - Thank You Letter kb - Antibiotic Education kb - Prescription Opioid Use kb Prescriptions: - Augmentin 875-125 mg Oral Tablet - take 1 tablet by ORAL route every 12 hours for 10 days; 20 tablet; Refills: 0, kb Product Selection Permitted Signatures: Genet Young, ANNY QUINONEZ-Dion Dinh MD MD rn Wood, Tiffany tw5 Corrections: (The following items were deleted from the chart) 09/07 23:59 23:57 Allergies: Amoxicillin; tw tw
--- NOTE | 2021-09-08 00:10 | ER ---
Nurse's Notes [facility] Name: Mark Anthony Schultz Age: 45 yrs Sex: Male : 1975 Arrival Date: 09/07/2021 Time: 23:34 Bed Waiting Private MD: Diagnosis: Periapical abscess without sinus Presentation: 09/07 23:55 Chief complaint: Patient states: "Infection in my mouth. In the bottom, it started tw5 yesterday". Coronavirus screen: Vaccine status: Patient reports being unvaccinated. Ebola Screen: Patient negative for fever greater than or equal to 101.5 degrees Fahrenheit, and additional compatible Ebola Virus Disease symptoms Patient denies exposure to infectious person. Patient denies travel to an Ebola-affected area in the 21 days before illness onset. Risk Assessment: Do you want to hurt yourself or someone else? Patient reports no desire to harm self or others. Onset of symptoms was September 05, 2021. 23:55 Acuity: PAMELA 5 tw5 23:55 Method Of Arrival: Ambulatory tw5 23:59 Initial Sepsis Screen: Does the patient meet any 2 criteria? HR > 90 bpm. Does the tw5 patient have a suspected source of infection? Yes:. Triage Assessment: 23:59 General: Behavior is drowsy. General: Appears uncomfortable, Behavior is. Pain: Pain tw5 currently is 8 out of 10 on a pain scale. EENT: Reports pain in left jaw. Neuro: Speech mumbling. Historical: - Allergies: 23:57 Ibuprofen; tw5 - PMHx: 23:57 Diverticulitis; "low blood pressure some times"; tw5 - Immunization history:: Flu vaccine is not up to date. - Social history:: Smoking status: Patient reports the use of cigarette tobacco products, smokes one-half pack cigarettes per day, Patient uses street drugs. Screenin/04 00:00 Abuse screen: Denies threats or abuse. Denies injuries from another. Nutritional tw5 screening: No deficits noted. Tuberculosis screening: No symptoms or risk factors identified. Fall Risk None identified. Assessment: 00:17 Neuro: Level of Consciousness is obeys commands, Oriented to person, place, time, tw5 situation, Speech is slurred. Vital Signs: 09/07 23:59 BP 135 / 102; Pulse 101; Resp 18; Temp 98.6; Pulse Ox 98% on R/A; Weight 108.86 kg; tw5 Height 6 ft. 0 in. (182.88 cm); Pain 8/10; 23:59 Body Mass Index 32.55 (108.86 kg, 182.88 cm) tw5 ED Course: 23:34 Patient arrived in ED. tw5 23:43 Genet Young FNP-C is [facility]. kb 23:43 Dion De La Torre MD is Attending Physician. kb 23:57 Triage completed. tw5 23:59 Arm band placed on. tw5 09/08 00:00 No provider procedures requiring assistance completed. Patient did not have IV access tw5 during this emergency room visit. 00:01 Patient has correct armband on for positive identification. tw5 Administered Medications: 00:17 Drug: Rocephin (cefTRIAXone) 1 grams Route: IM; Site: right ventrogluteal; tw5 00:17 Follow up: Response: No adverse reaction; Medication administered at discharge. tw5 Medication: 00:00 VIS not applicable for this client. tw5 Outcome: 00:09 Discharge ordered by . kb 00:17 Discharged to home ambulatory. tw5 00:17 Condition: good 00:17 Discharge instructions given to patient, Instructed on discharge instructions, follow up and referral plans. medication usage, Demonstrated understanding of instructions, follow-up care, medications, Prescriptions given X 1. 00:18 Patient left the ED. tw5 Signatures: Genet Young FNP-C FNP-Ckb Wood, Tiffany 5 Corrections: (The following items were deleted from the chart) 09/07 23:59 23:57 Allergies: Amoxicillin; tw5 tw5
[2021-09-08] MEDS ORDERED: CEFTRIAXONE 1000 MG/VIAL ONE (00:14)
[2021-09-08] MEDS ORDERED: WATER FOR INJ,STERILE 10 ML ONE (00:15)
[2021-09-08 02:04] VITALS: BP 135/102; TEMP 98.6; O2SAT 98
== END 2021-09-08 00:18 | disposition home or self-care (01) ==
LOC: ER 23:29
DX: K04.7 Periapical abscess without sinus (principal); F17.210 Nicotine dependence, cigarettes, uncomplicated
CPT/HCPCS: 96372; 99283

== ENCOUNTER 2022-04-12 10:54 | Emergency (ER) | payer SELFPAY ==
--- OUTSIDE RECORDS SUMMARY | 2022-04-12 10:57 | XMS REPORT | Continuity of Care Document ---
:1975 [facility] Address [address] [place] [address] Care Team Providers Name Role Phone Elif Evans Attending Clinician Lab, Adc Fam Pob I Attending Clinician Unavailable FARSHAD CARDOZA Attending Clinician Unavailable Doctor Unassigned, [place] Attending Clinician Unavailable Payers Payer Name Policy Type Policy Number Effective Date Expiration Date S michael CIG[employer] II [id number] 2019 00:00:00 Problems This patient has no known problems. Allergies, Adverse Reactions, Alerts Allergy Allergy Status Severity Reaction(s) Onset Inactive Treating Comm ents Source Name Type Date Date Clinician IBUPROFE DRUG Active N/V 2017-02 [facility] N INGREDI 0-10 ity of 00:00: [address] Medications This patient has no known medications. Procedures This patient has no known procedures. Encounters Start End Encounter Admission Attending Care Care Encounter Source Date/Time Date/Time Type Type Clinicians Facility Department ID 2022-02-08 2022-02-08 Outpatient [facility]ITL [id number] Charlie 15:32:53 15:32:53 0104 [facility] 2019-10-02 2019-10-02 Outpatient R [facility] [id number] Univers 08:00:00 08:00:00 ity of [facility] 2019-09-15 2019-09-15 Caro MeñoRITCHIE [id number] 00:00:00 00:00:00 [facility] [id number] [place] [id number] Professio [phone] nal 0[address] One 2019-09-14 2019-09-14 Laboratory Lab, [facility] [id number] 11:56:56 12:16:56 Only Fam Pob I Health [id number] [place] [id number] Professio [phone] nal 044 [address] 2019-09-14 2019-09-14 Outpatient Lee [facility] [id number] Univers 12:00:00 12:00:00 FARSHAD dyer [facility] 2019-09-14 2019-09-14 Letter Doctor KAITLYN [id number] 00:00:00 00:00:00 (Out) Unassigned, [place] [id number] [facility] [id number] 2019-08-25 2019-08-25 Laboratory Lab, [facility] [id number] 08:23:13 08:43:13 Only Fam Pob I Health [id number] [place] [id number] Professio [phone] nal [facility] Office Building [facility] 2019-08-25 2019-08-25 Outpatient Lee [facility] [id number] Univers 08:20:00 08:20:00 FARSHADEVA dyer [facility] 2019-08-25 2019-08-25 Letter Doctor KAITLYN [id number] 00:00:00 00:00:00 (Out) Unassigned, [place] [id number] [facility] [id number] Results This patient has no known results.
[2022-04-12] MEDS ORDERED: HYDROCODONE/APAP 5/325 MG TAB ONE (11:36)
--- NOTE | 2022-04-28 15:29 | EDPHYS ---
Physician Documentation [facility] Name: Mark Anthony Schultz Age: 46 yrs Sex: Male : 1975 Arrival Date: 04/12/2022 Time: 10:57 Bed IW1 Private MD: ED Physician Ba Lipscomb HPI: 04/12 11:30 This 46 yrs old Black Male presents to ER via Ambulatory with complaints of broke Tooth.ms3 11:30 46-year-old male with past medical history of diverticulitis, low blood pressure ms3 presents for right lower tooth pain. Patient states he was eating ice yesterday when he broke his tooth. Patient states his pain is a 10/10. Patient denies alleviating factors.. Historical: - Allergies: 11:04 Ibuprofen; ap3 11:04 Cipro; ap3 - PMHx: 11:04 "low blood pressure some times"; Diverticulitis; ap3 - Immunization history:: Client reports having NOT received the Covid vaccine. - Social history:: Smoking status: Patient reports the use of cigarette tobacco products, denies chronic smoking, but will smoke occasionally. ROS: 11:30 Constitutional: Negative for fever, and chills. Neck: Negative for injury, pain, and ms3 swelling, Cardiovascular: Negative for chest pain, and palpitations. Respiratory: Negative for shortness of breath, cough, wheezing, and pleuritic chest pain, Abdomen/GI: Negative for abdominal pain, nausea, vomiting, diarrhea, and constipation. 11:30 ENT: Positive for dental pain. 11:30 All other systems are negative. Exam: 11:30 Constitutional: This is a well developed, well nourished patient who is awake, alert, ms3 and in no acute distress. Head/Face: Normocephalic, atraumatic. Neck: Trachea midline, no cervical lymphadenopathy. Supple, full range of motion without nuchal rigidity, or vertebral point tenderness. No Meningismus. Chest/axilla: Normal chest wall appearance and motion. Nontender with no deformity. Cardiovascular: Regular rate and rhythm with a normal S1 and S2. No gallops, murmurs, or rubs. Normal PMI, no JVD. No pulse deficits. Respiratory: Lungs have equal breath sounds bilaterally, clear to auscultation and percussion. No rales, rhonchi or wheezes noted. No increased work of breathing, no retractions or nasal flaring. Abdomen/GI: Soft, non-tender, with normal bowel sounds. No distension or tympany. No guarding or rebound. No evidence of tenderness throughout. 11:30 ENT: Dental exam: dental caries, that is severe, diffusely, fractured teeth are noted, diffusely, gum swelling, that is moderate, specifically in the lower right first molar (#30) and lower right second molar (#31). Vital Signs: 11:02 BP 144 / 92; Pulse 112; Resp 19; Temp 98; Pulse Ox 100% ; Weight 95.25 kg; Height 6 ft. ap3 0 in. ; Pain 9/10; 11:02 Body Mass Index 28.48 (95.25 kg, 182.88 cm) ap3 11:02 Pain Scale: Adult ap3 MDM: 11:23 Patient medically screened. ms3 11:30 Differential diagnosis: dental caries, gingivostomatitis. Data reviewed: vital signs, ms3 nurses notes, and as a result, I will discharge patient. I considered the following discharge prescriptions or medication management in the emergency department Medications were administered in the Emergency Department. See MAR. Counseling: I had a detailed discussion with the patient and/or guardian regarding: the historical points, exam findings, and any diagnostic results supporting the discharge/admit diagnosis, the need for outpatient follow up, to return to the emergency department if symptoms worsen or persist or if there are any questions or concerns that arise at home. ED course: Discussed physical exam findings with patient. Patient states he has appointment with dentist next Sunday. Return precautions discussed include worsening symptoms, or any other concerns. Patient understands and agrees with plan. All questions were answered.. Administered Medications: 11:34 Drug: HYDROcodone-acetaminophen PO 5 mg-325 mg 1 tabs Route: PO; ap3 Disposition Summary: 04/12/22 11:27 Discharge Ordered Location: Home ms3 Condition: Stable ms3 Diagnosis - Dental caries, unspecified ms3 Followup: ms3 - With: Elias Lovett DDS - When: 2 - 3 days - Reason: Recheck today's complaints Discharge Instructions: - Discharge Summary Sheet ms3 - Dental Caries, Adult ms3 Forms: - Medication Reconciliation Form ms3 - Thank You Letter ms3 - Antibiotic Education ms3 - Prescription Opioid Use ms3 Prescriptions: - Clindamycin HCl 300 mg Oral Capsule - take 1 capsule by ORAL route every 8 hours for 10 days; 30 capsule; Refills: 0, ms3 Product Selection Permitted Signatures: Amy Joseph, RN RN ap3 Ba Lipscomb DO DO ms3
--- NOTE | 2022-04-28 15:29 | ER ---
Nurse's Notes [facility] Name: Mark Anthony Schultz Age: 46 yrs Sex: Male : 1975 Arrival Date: 04/12/2022 Time: 10:57 Bed IW1 Private MD: Diagnosis: Dental caries, unspecified Presentation: 04/12 11:02 Chief complaint: Patient states: he broke one of his upper back teeth yesterday, and ap3 has a dentist appointment lined up for next week. patient came to the ED today requesting antibiotics and pain medications to get him to the appointment so he can get back to work. Coronavirus screen: At this time, the client does not indicate any symptoms associated with coronavirus-19. Ebola Screen: No symptoms or risks identified at this time. Initial Sepsis Screen: Does the patient meet any 2 criteria? HR > 90 bpm. Does the patient have a suspected source of infection? Yes: Other: reported broken tooth. Risk Assessment: Do you want to hurt yourself or someone else? Patient reports no desire to harm self or others. Onset of symptoms was April 11, 2022. 11:02 Method Of Arrival: Ambulatory ap3 11:02 Acuity: PAMELA 4 ap3 Triage Assessment: 11:05 General: Appears uncomfortable, Behavior is calm, cooperative, appropriate for age. ap3 Pain: Complains of pain in right buccal mucosa. Neuro: Level of Consciousness is awake, alert, obeys commands, Oriented to person, place, time. Cardiovascular: Patient's skin is warm and dry. Respiratory: Airway is patent Respiratory effort is even, unlabored, Respiratory pattern is regular, symmetrical. Historical: - Allergies: 11:04 Ibuprofen; ap3 11:04 Cipro; ap3 - PMHx: 11:04 "low blood pressure some times"; Diverticulitis; ap3 - Immunization history:: Client reports having NOT received the Covid vaccine. - Social history:: Smoking status: Patient reports the use of cigarette tobacco products, denies chronic smoking, but will smoke occasionally. Screenin:05 [facility] ED Fall Risk Assessment (Adult) History of falling in the last 3 months, ap3 including since admission No falls in past 3 months (0 pts). Abuse screen: Denies threats or abuse. Nutritional screening: No deficits noted. Tuberculosis screening: No symptoms or risk factors identified. Vital Signs: 11:02 BP 144 / 92; Pulse 112; Resp 19; Temp 98; Pulse Ox 100% ; Weight 95.25 kg; Height 6 ft. ap3 0 in. ; Pain 9/10; 11:02 Body Mass Index 28.48 (95.25 kg, 182.88 cm) ap3 11:02 Pain Scale: Adult ap3 ED Course: 10:57 Patient arrived in ED. mr 11:02 Ba Lipscomb DO is Attending Physician. ms3 11:04 Triage completed. ap3 11:06 Arm band placed on left wrist. ap3 11:06 Patient has correct armband on for positive identification. Pulse ox on. NIBP on. ap3 11:06 No provider procedures requiring assistance completed. ap3 11:26 Elias Lovett DDS is Referral Physician. ms3 11:35 Patient did not have IV access during this emergency room visit. ap3 Administered Medications: 11:34 Drug: HYDROcodone-acetaminophen PO 5 mg-325 mg 1 tabs Route: PO; ap3 Medication: 11:06 VIS not applicable for this client. ap3 Outcome: 11:27 Discharge ordered by . ms3 11:34 Discharged to home ambulatory. ap3 11:34 Condition: good 11:34 Discharge instructions given to patient, Instructed on discharge instructions, follow up and referral plans. medication usage, Demonstrated understanding of instructions, follow-up care, medications, Prescriptions given X 1. 11:35 Patient left the ED. ap3 Signatures: Holland, Irina allen annikaAmy RN RN ap3 Ba Lipscomb DO DO ms3
== END 2022-04-12 11:35 | disposition home or self-care (01) ==
LOC: ER 10:54
DX: K02.9 Dental caries, unspecified (principal); F17.210 Nicotine dependence, cigarettes, uncomplicated; Z88.1 Allergy status to other antibiotic agents; Z88.6 Allergy status to analgesic agent
CPT/HCPCS: 99283

== ENCOUNTER 2022-10-18 21:51 | Emergency (ER) | payer OTHER ==
--- OUTSIDE RECORDS SUMMARY | 2022-10-18 21:56 | XMS REPORT | Continuity of Care Document ---
:1975 [facility] [address] [place] [address] Care Team Providers Name Role Phone Elif Evans Attending Clinician Lab, Adc Fam Pob I Attending Clinician Unavailable FARSHAD CARDOZA Attending Clinician Unavailable Doctor Unassigned, Moody Attending Clinician Unavailable Payers Payer Name Policy Type Policy Number Effective Date Expiration Date S michael CIG[employer] II [id number] 2019 00:00:00 Problems This patient has no known problems. Allergies, Adverse Reactions, Alerts Allergy Allergy Status Severity Reaction(s) Onset Inactive Treating Comm ents Source Name Type Date Date Clinician IBUPROFE DRUG Active N/V 2017-02 [facility] N INGREDI 0-10 ity of 00:00: [address] Medications This patient has no known medications. Procedures This patient has no known procedures. Encounters Start End Encounter Admission Attending Care Care Encounter Source Date/Time Date/Time Type Type Clinicians Facility Department ID 2022-02-08 2022-02-08 Outpatient [facility] XOCHITL [id number] Charlie 15:32:53 15:32:53 0104 F Law 2019-10-02 2019-10-02 Outpatient R [facility] [id number] Univers 08:00:00 08:00:00 ity of [facility] 2019-09-15 2019-09-15 RITCHIE Rouse [id number] 00:00:00 00:00:00 [facility] [id number] [place] [id number] Professio [phone] [address] 2019-09-14 2019-09-14 Laboratory Lab, [facility] [id number] 11:56:56 12:16:56 Only Fam Pob I Health [id number] [place] [id number] Professio [phone] nal [address] 2019-09-14 2019-09-14 [facility] [id number] Univers 12:00:00 12:00:00 FARSHAD dyer [facility] 2019-09-14 2019-09-14 Letter Doctor KAITLYN [id number] 00:00:00 00:00:00 (Out) Unassigned, [place] [id number] [facility] [id number] 044 2019-08-25 2019-08-25 Laboratory Lab, [facility] [id number] 08:23:13 08:43:13 Only Fam P[facility] I Health [id number] [place] [id number] Professio [phone] [place] [address] Office Building [facility] 2019-08-25 2019-08-25 [facility] [id number] Univers 08:20:00 08:20:00 FARSHAD ity [facility] 2019-08-25 2019-08-25 Letter Doctor KAITLYN [id number] 00:00:00 00:00:00 (Out) Unassigned, [place] [id number] [facility] [phone] 044 Results This patient has no known results.
--- NOTE | 2022-10-18 22:19 | ER ---
Nurse's Notes [facility] Name: Mark Anthony Schultz Age: 46 yrs Sex: Male : 1975 Arrival Date: 10/18/2022 Time: 21:51 Bed 12 Private MD: Diagnosis: Disorder of teeth and supporting structures, unspecified;Acute sinusitis, unspecified Presentation: 10/18 22:09 Chief complaint: Patient states: sinus pressure/congestion x2 days. Coronavirus screen: as6 At this time, the client does not indicate any symptoms associated with coronavirus-19. Ebola Screen: No symptoms or risks identified at this time. Initial Sepsis Screen: Does the patient meet any 2 criteria? No. Patient's initial sepsis screen is negative. Does the patient have a suspected source of infection? No. Patient's initial sepsis screen is negative. Risk Assessment: Do you want to hurt yourself or someone else? Patient reports no desire to harm self or others. Onset of symptoms was October 16, 2022. 22:09 Acuity: PAMELA 4 as6 22:09 Method Of Arrival: Ambulatory as6 Triage Assessment: 22:19 General: Appears in no apparent distress. Behavior is calm, cooperative. Pain: as6 Complains of pain in right cheek. EENT: Reports nasal congestion. Respiratory: Respiratory effort is even, unlabored. Historical: - Allergies: 22:08 Cipro; as6 22:08 Ibuprofen; as6 - PMHx: 22:08 "low blood pressure some times"; Diverticulitis; as6 - PSHx: 22:08 None; as6 - Immunization history:: Client reports having NOT received the Covid vaccine. - Social history:: Smoking status: Patient reports the use of cigarette tobacco products, Reported history of juuling and/or vaping. Screenin:20 [facility] ED Fall Risk Assessment (Adult) Score/Fall Risk Level 0 - 2 = Low Risk. Abuse as6 screen: Denies threats or abuse. Denies injuries from another. Nutritional screening: No deficits noted. Tuberculosis screening: No symptoms or risk factors identified. Vital Signs: 22:09 BP 134 / 68; Pulse 89; Resp 18; Temp 98.4; Pulse Ox 96% ; Weight 99.79 kg; Height 6 ft. as6 0 in. ; Pain 9/10; 22:09 Body Mass Index 29.84 (99.79 kg, 182.88 cm) as6 22:09 Pain Scale: Adult as6 ED Course: 21:55 Patient arrived in ED. mr 21:57 Dennis Vargas PA is PHCP. cp 21:57 Dion De La Torre MD is Attending Physician. cp 22:09 Arm band placed on. as6 22:10 Triage completed. as6 22:12 Suraj Shah, RN is Primary Nurse. as6 22:20 Bed in low position. Call light in reach. as6 22:35 Provided Education on: abx teaching . as6 22:35 No provider procedures requiring assistance completed. Patient did not have IV access as6 during this emergency room visit. Administered Medications: 22:35 Drug: Rocephin (cefTRIAXone) IM 1 grams Route: IM; Site: left ventrogluteal; as6 22:35 Follow up: Response: No adverse reaction as6 Medication: 22:20 VIS not applicable for this client. as6 Outcome: 22:18 Discharge ordered by MD. cp 22:35 Discharged to home ambulatory. as6 22:35 Condition: stable 22:35 Discharge instructions given to patient, Instructed on discharge instructions, follow up and referral plans. medication usage, Demonstrated understanding of instructions, follow-up care, medications, Prescriptions given X 1. 22:36 Patient left the ED. as6 Signatures: Holland, Irina allen Dennis Vargas PA PA cp Suraj Shah, RN RN as6 Corrections: (The following items were deleted from the chart) 22:09 22:08 PSHx: Unable to Obtain; as6 as6 22:12 22:09 BP 134 / 68; Pulse 89bpm; Resp 96bpm; Pulse Ox 96%; Temp 98.4F; 99.79 kg; Height as6 6 ft. 0 in.; BMI: 29.8; Pain 9/10, Adult; as6
--- NOTE | 2022-10-18 22:19 | EDPHYS ---
Physician Documentation [facility] Name: Mark Anthony Schultz Age: 46 yrs Sex: Male : 1975 Arrival Date: 10/18/2022 Time: 21:51 Bed 12 Private MD: ED Physician Dion De La Torre HPI: 10/18 22:09 This 46 yrs old Black Male presents to ER via Unassigned with complaints of Sinus cp Congestion. 22:09 The patient or guardian reports sinus congestion, sinus pain, right upper jaw pain. cp 22:09 Onset: The symptoms/episode began/occurred 2 day(s) ago. Severity of symptoms: in the emergency department the symptoms are unchanged, despite home interventions. Associated signs and symptoms: Pertinent negatives: diarrhea, ear ache, fever, sore throat, vomiting. Historical: - Allergies: 22:08 Cipro; as6 22:08 Ibuprofen; as6 - PMHx: 22:08 "low blood pressure some times"; Diverticulitis; as6 - PSHx: 22:08 None; as6 - Immunization history:: Client reports having NOT received the Covid vaccine. - Social history:: Smoking status: Patient reports the use of cigarette tobacco products, Reported history of juuling and/or vaping. ROS: 22:12 Eyes: Negative for injury, pain, redness, and discharge. cp 22:12 Constitutional: Negative for body aches, fever, poor PO intake. 22:12 ENT: Positive for dental pain, sinus congestion, sinus pain, Negative for drainage from ear(s), ear pain, sore throat, difficulty swallowing, difficulty handling secretions. 22:12 Respiratory: Negative for cough, shortness of breath, wheezing. 22:12 Abdomen/GI: Negative for abdominal pain, nausea, vomiting, and diarrhea. 22:12 Skin: Negative for rash. 22:12 Neuro: Positive for headache, Negative for altered mental status, weakness. 22:12 All other systems are negative. Exam: 22:14 Constitutional: The patient appears in no acute distress, alert, awake, cp non-diaphoretic, non-toxic, well developed, well nourished. 22:14 Head/face: Noted is swelling, that is mild, of the right cheek, tenderness, that is moderate, of the right cheek. 22:14 Eyes: Periorbital structures: appear normal, Extraocular movements: intact throughout, Conjunctiva: normal, no exudate, no injection, Sclera: no appreciated abnormality, Lids and lashes: appear normal, bilaterally. 22:14 ENT: External ear(s): are unremarkable, Ear canal(s): are normal, clear, TM's: dullness, bilaterally, Nose: is normal, Mouth: Lips: moist, Oral mucosa: pink and intact, moist, Posterior pharynx: Airway: no evidence of obstruction, patent, Tonsils: no enlargement, no erythema, no exudate, swelling, is not appreciated, erythema, is not appreciated, exudate, is not appreciated, Dental exam: abscess, is not appreciated, dental caries, that is severe, diffusely, gum swelling, that is mild, specifically in the right upper jaw, pain, that is moderate, specifically in the right upper jaw, Voice: is normal. 22:14 Neck: ROM/movement: is normal, is supple, without pain, no range of motions limitations, no meningismus, no nuchal rigidity. 22:14 Chest/axilla: Inspection: normal. 22:14 Cardiovascular: Rate: normal, Rhythm: regular. 22:14 Respiratory: the patient does not display signs of respiratory distress, Respirations: normal, no use of accessory muscles, no retractions, labored breathing, is not present, Breath sounds: are clear throughout, no decreased breath sounds. 22:14 Skin: no rash present. Vital Signs: 22:09 BP 134 / 68; Pulse 89; Resp 18; Temp 98.4; Pulse Ox 96% ; Weight 99.79 kg; Height 6 ft. as6 0 in. ; Pain 9/10; 22:09 Body Mass Index 29.84 (99.79 kg, 182.88 cm) as6 22:09 Pain Scale: Adult as6 MDM: 22:18 Patient medically screened. cp 22:18 Differential Diagnosis: Otitis Media Other dental abscess, sinusitis. cp 22:18 Data reviewed: vital signs, nurses notes. I considered the following discharge cp prescriptions or medication management in the emergency department Medications were administered in the Emergency Department. See MAR. Care significantly affected by the following chronic conditions: dental caries. Counseling: I had a detailed discussion with the patient and/or guardian regarding the historical points, exam findings, and any diagnostic results supporting the discharge/admit diagnosis, the need for outpatient follow up, for definitive care, a dentist, to return to the emergency department if symptoms worsen or persist or if there are any questions or concerns that arise at home. Response to treatment: the patient's symptoms have mildly improved after treatment, and as a result, I will discharge patient. Administered Medications: 22:35 Drug: Rocephin (cefTRIAXone) IM 1 grams Route: IM; Site: left ventrogluteal; as6 22:35 Follow up: Response: No adverse reaction as6 Disposition: 10/19 00:03 Co-signature as Attending Physician, Dion De La Torre MD I reviewed the patient's care rn provided by the Advanced Practice Provider and agree with the diagnosis and treatment plan. Disposition Summary: 10/18/22 22:18 Discharge Ordered Location: Home cp Problem: new cp Symptoms: have improved cp Condition: Stable cp Diagnosis - Disorder of teeth and supporting structures, unspecified cp - Acute sinusitis, unspecified cp Followup: cp - With: Private Physician - When: 2 - 3 days - Reason: Recheck today's complaints Discharge Instructions: - Discharge Summary Sheet cp - Dental Pain cp - Sinusitis, Adult cp Forms: - Medication Reconciliation Form cp - Thank You Letter cp - Antibiotic Education cp - Prescription Opioid Use cp - Patient Portal Instructions cp - Leadership Thank You Letter cp Prescriptions: - Augmentin 875-125 mg Oral Tablet - take 1 tablet by ORAL route every 12 hours for 14 days; 28 tablet; Refills: 0, cp Product Selection Permitted Signatures: Dion De La Torre MD MD rn Page, Corey, PA PA cp Slawson, Ashby RN RN as6 Corrections: (The following items were deleted from the chart) 10/18 22:09 22:08 PSHx: Unable to Obtain; as6 as6 10/19 21:23 10/18 22:25 Differential Diagnosis: Otitis Media Other dental abscess, sinusitis cp cp
[2022-10-18] MEDS ORDERED: CEFTRIAXONE 1000 MG/VIAL ONE (22:40)
[2022-10-18] MEDS ORDERED: LIDOCAINE 1% MPF 2 ML AMPULE ONE (22:40)
[2022-10-18 23:49] VITALS: BP 134/68; TEMP 98.4; O2SAT 96
== END 2022-10-18 22:36 | disposition home or self-care (01) ==
LOC: ER 21:51
DX: J01.90 Acute sinusitis, unspecified (principal); K08.89 Other specified disorders of teeth and supporting structures; Z88.1 Allergy status to other antibiotic agents; Z88.6 Allergy status to analgesic agent; Z72.0 Tobacco use
CPT/HCPCS: 96372; 99284; J0696

== ENCOUNTER 2022-10-19 03:49 | Emergency (ER) | payer OTHER ==
--- OUTSIDE RECORDS SUMMARY | 2022-10-19 03:52 | XMS REPORT | Continuity of Care Document ---
:1975 [facility] [address] [place] [address] Care Team Providers Name Role Phone Elif Evans Attending Clinician Lab, Adc Fam Pob I Attending Clinician Unavailable FARSHAD CARDOZA Attending Clinician Unavailable Doctor Unassigned, [place] Attending Clinician Unavailable Payers Payer Name Policy Type Policy Number Effective Date Expiration Date S michael CIG[employer] II [id number] 2019 00:00:00 Problems This patient has no known problems. Allergies, Adverse Reactions, Alerts Allergy Allergy Status Severity Reaction(s) Onset Inactive Treating Comm ents Source Name Type Date Date Clinician IBUPROFE DRUG Active N/V 2017-02 [facility] N INGREDI 0-10 ity of 00:00: [address] Medications This patient has no known medications. Procedures This patient has no known procedures. Encounters Start End Encounter Admission Attending Care Care Encounter Source Date/Time Date/Time Type Type Clinicians Facility Department ID 2022-02-08 2022-02-08 Outpatient [facility] XOCHITL [id number] Charlie 15:32:53 15:32:53 0104 F Law 2019-10-02 2019-10-02 Outpatient R [facility] [id number] Univers 08:00:00 08:00:00 ity of [facility] 2019-09-15 2019-09-15 RITCHIE Rouse [id number] 00:00:00 00:00:00 [facility] [id number] [place] [id number] Professio [phone] nal [address] 2019-09-14 2019-09-14 Laboratory Lab, [facility] [id number] 11:56:56 12:16:56 Only Fam Pob I Health [id number] [place] [id number] Professio [phone] nal [address] 2019-09-14 2019-09-14 Outpatient [facility] [id number] Univers 12:00:00 12:00:00 FARSHAD dyer [facility] 2019-09-14 2019-09-14 Letter Doctor KAITLYN [id number] 00:00:00 00:00:00 (Out) Unassigned, [place] [id number] [facility] [id number] 2019-08-25 2019-08-25 Laboratory Lab, [facility] [id number] 08:23:13 08:43:13 Only Fam Pob I Health [id number] [place] [id number] Professio [phone] [place] [address] Office Building [facility] 2019-08-25 2019-08-25 [facility] [id number] Univers 08:20:00 08:20:00 FARSHAD ity [facility] 2019-08-25 2019-08-25 Letter Doctor KAITLYN [id number] 00:00:00 00:00:00 (Out) Unassigned, [place] [id number] [facility] [id number] [id number] Results This patient has no known results.
[2022-10-19] MEDS ORDERED: METHYLPREDNISOLONE 125 MG INJ ONE (04:26)
[2022-10-19] MEDS ORDERED: MORPHINE 2 MG/ML SYR ONE (04:27)
[2022-10-19] MEDS ORDERED: DIPHENHYDRAMINE 50 MG/ML VIAL ONE (04:27)
--- NOTE | 2022-10-19 05:28 | EDPHYS ---
Physician Documentation [facility] Name: Mark Anthony Schultz Age: 46 yrs Sex: Male : 1975 Arrival Date: 10/19/2022 Time: 03:49 Bed 13 Private MD: ED Physician Dion De La Torre HPI: 10/19 04:37 This 46 yrs old Black Male presents to ER via Ambulatory with complaints of Facial rn Swelling. 04:37 The patient presents with pain, swelling. Onset: The symptoms/episode began/occurred rn yesterday. Modifying factors: The symptoms are alleviated by nothing, the symptoms are aggravated by talking. Severity of symptoms: At their worst the symptoms were moderate, in the emergency department the symptoms are unchanged. The patient has experienced similar episodes in the past. The patient has been recently seen at the [facility] Emergency Department. Patient reports seen here last night for sinus problems and dental pain, given shot of Rocephin, went home and then an hour later began to notice increased facial swelling and pain to right side of face. No fever. No trouble swallowing or breathing. Has had allergic reaction to Cipro and this feels different. Denies any previous allergies to penicillin type drugs.. Historical: - Allergies: 04:02 Cipro; as6 04:02 Ibuprofen; as6 - PMHx: 04:02 "low blood pressure some times"; Diverticulitis; as6 - PSHx: 04:02 None; as6 - Immunization history:: Client reports having NOT received the Covid vaccine. - Social history:: Smoking status: Patient reports the use of cigarette tobacco products, Reported history of juuling and/or vaping. - Family history:: not pertinent. - Hospitalizations: : No recent hospitalization is reported. ROS: 04:37 Constitutional: Negative for fever, chills, and weight loss, ENT: Positive for dental rn pain and right facial swelling Neck: Negative for injury, pain, and swelling, Cardiovascular: Negative for chest pain, palpitations, and edema, Respiratory: Negative for shortness of breath, cough, wheezing, and pleuritic chest pain, Abdomen/GI: Negative for abdominal pain, nausea, vomiting, diarrhea, and constipation, MS/Extremity: Negative for injury and deformity, Skin: Negative for injury, rash, and discoloration, Neuro: Negative for headache, weakness, numbness, tingling, and seizure. Exam: 04:37 Constitutional: This is a well developed, well nourished patient who is awake, alert, rn and in no acute distress. Head/Face: Mild right facial swelling over right cheek, no fluctuance, no periorbital swelling ENT: Poor dentition without intraoral abscess Neck: Trachea midline, tender anterior cervical lymphadenopathy. No crepitus. Cardiovascular: Regular rate and rhythm. No pulse deficits. Neuro: Awake and alert, GCS 15, oriented to person, place, time, and situation. Cranial nerves II-XII grossly intact. Motor strength 5/5 in all extremities. Sensory grossly intact. Cerebellar exam normal. Normal gait. Vital Signs: 04:11 BP 149 / 106; Pulse 96; Resp 18; Temp 98.4; Pulse Ox 98% ; Weight 99.79 kg; Height 6 as6 ft. 0 in. ; 05:42 BP 153 / 107; Pulse 91; Resp 16; Pulse Ox 97% on R/A; jb4 04:11 Body Mass Index 29.84 (99.79 kg, 182.88 cm) as6 MDM: 03:53 Patient medically screened. rn 04:59 Differential diagnosis: dental caries, facial cellulitis, sinusitis. Data reviewed: rn vital signs, nurses notes, and as a result, I will discharge patient. Counseling: I had a detailed discussion with the patient and/or guardian regarding the historical points, exam findings, and any diagnostic results supporting the discharge/admit diagnosis, the need for outpatient follow up, to return to the emergency department if symptoms worsen or persist or if there are any questions or concerns that arise at home. Special discussion: I discussed with the patient/guardian in detail that at this point there is no indication for admission to the hospital. It is understood, however, that if the symptoms persist or worsen the patient needs to return immediately for re-evaluation. Based on the history and exam findings, there is no indication for further emergent testing or inpatient evaluation. I discussed with the patient/guardian the need to see a dentist for further evaluation of the symptoms. I discussed with the patient/guardian the need to see the primary care provider for further evaluation of the symptoms. 04:59 Response to treatment: the patient's symptoms have mildly improved after treatment, rn resting comfortably. 10/19 04:07 Order name: IV Start; Complete Time: 04:24 rn Administered Medications: 04:24 Drug: diphenhydrAMINE IVP 25 mg Route: IVP; Site: right antecubital; jb4 05:41 Follow up: Response: No adverse reaction; Marked relief of symptoms jb4 04:24 Drug: MethylPrednisoLONE IVP 125 mg Route: IVP; Site: right antecubital; jb4 05:41 Follow up: Response: No adverse reaction; Marked relief of symptoms jb4 04:24 Drug: morphine IVP or IV 2 mg Route: IVP; Infused Over: 4 mins; Site: right antecubital;jb4 05:41 Follow up: Response: No adverse reaction; Marked relief of symptoms jb4 05:25 Drug: Clindamycin PO 300 mg Route: PO; jb4 05:42 Follow up: Response: No adverse reaction jb4 05:40 Drug: Ketorolac IVP 30 mg Route: IVP; Site: right antecubital; jb4 Disposition Summary: 10/19/22 05:28 Discharge Ordered Location: Home rn Problem: new rn Symptoms: have improved rn Condition: Stable rn Diagnosis - Cellulitis of face rn Followup: rn - With: Private Physician - When: As needed - Reason: Recheck today's complaints, Re-evaluation by your physician Discharge Instructions: - Discharge Summary Sheet rn - Cellulitis, Adult rn Forms: - Medication Reconciliation Form rn - Thank You Letter rn - Antibiotic barrel burner - Prescription Opioid Use rn - Patient Portal Instructions rn - Leadership Thank You Letter rn Prescriptions: - Clindamycin HCl 300 mg Oral Capsule - take 1 capsule by ORAL route every 6 hours for 10 days; 40 capsule; Refills: 0, rn Product Selection Permitted - Tramadol 50 mg Oral Tablet - take 1 tablet by ORAL route every 8 hours as needed; 12 tablet; Refills: 0, rn Product Selection Permitted Signatures: Dion De La Torre MD MD rn Bryson, James, RN RN jb4 Suraj Shah RN RN as6
--- NOTE | 2022-10-19 05:28 | ER ---
Nurse's Notes [facility] Name: Mark Anthony Schultz Age: 46 yrs Sex: Male : 1975 Arrival Date: 10/19/2022 Time: 03:49 Bed 13 Private MD: Diagnosis: Cellulitis of face Presentation: 10/19 04:02 Coronavirus screen: At this time, the client does not indicate any symptoms associated as6 with coronavirus-19. Ebola Screen: No symptoms or risks identified at this time. Risk Assessment: Do you want to hurt yourself or someone else? Patient reports no desire to harm self or others. 04:02 Method Of Arrival: Ambulatory as6 04:11 Chief complaint: Patient states: pt was here last night for dental pain and feels like as6 symptoms are worsening. Initial Sepsis Screen: Does the patient meet any 2 criteria? No. Patient's initial sepsis screen is negative. Does the patient have a suspected source of infection? No. Patient's initial sepsis screen is negative. Onset of symptoms was October 19, 2022. 04:11 Acuity: PAMELA 4 as6 Historical: - Allergies: 04:02 Cipro; as6 04:02 Ibuprofen; as6 - PMHx: 04:02 "low blood pressure some times"; Diverticulitis; as6 - PSHx: 04:02 None; as6 - Immunization history:: Client reports having NOT received the Covid vaccine. - Social history:: Smoking status: Patient reports the use of cigarette tobacco products, Reported history of juuling and/or vaping. - Family history:: not pertinent. - Hospitalizations: : No recent hospitalization is reported. Screenin:[address] [facility] ED Fall Risk Assessment (Adult) Score/Fall Risk Level 0 - 2 = Low Risk. Abuse as6 screen: Denies threats or abuse. Denies injuries from another. Nutritional screening: No deficits noted. Tuberculosis screening: No symptoms or risk factors identified. Assessment: 04:15 General: Appears in no apparent distress. uncomfortable, Behavior is calm, cooperative, jb4 appropriate for age. Pain: Complains of pain in right cheek, headache Pain does not radiate. Pain currently is 8 out of 10 on a pain scale. Quality of pain is described as throbbing. Neuro: Level of Consciousness is awake, alert, obeys commands, Oriented to person, place, time, situation. Cardiovascular: Patient's skin is warm and dry. Respiratory: Airway is patent Respiratory effort is even, unlabored, Respiratory pattern is regular, symmetrical. GI: No signs and/or symptoms were reported involving the gastrointestinal system. : No signs and/or symptoms were reported regarding the genitourinary system. EENT: No signs and/or symptoms were reported regarding the EENT system. Derm: Skin is intact, Skin is pink, warm \\T\\ dry. Musculoskeletal: Circulation, motion, and sensation intact. Range of motion: intact in all extremities. 05:42 Reassessment: Patient appears in no apparent distress at this time. Patient and/or jb4 family updated on plan of care and expected duration. Pain level reassessed. Patient is alert, oriented x 3, equal unlabored respirations, skin warm/dry/pink. Vital Signs: 04:11 BP 149 / 106; Pulse 96; Resp 18; Temp 98.4; Pulse Ox 98% ; Weight 99.79 kg; Height 6 as6 ft. 0 in. ; 05:42 BP 153 / 107; Pulse 91; Resp 16; Pulse Ox 97% on R/A; jb4 04:11 Body Mass Index 29.84 (99.79 kg, 182.88 cm) as6 ED Course: 03:52 Patient arrived in ED. mr 03:53 Dion De La Torre MD is Attending Physician. rn 04:02 Arm band placed on. as6 04:10 Ghanshyam Desai, RN is Primary Nurse. jb4 04:12 Triage completed. as6 05:59 No provider procedures requiring assistance completed. IV discontinued, intact, jb4 bleeding controlled, No redness/swelling at site. Pressure dressing applied. Administered Medications: 04:24 Drug: diphenhydrAMINE IVP 25 mg Route: IVP; Site: right antecubital; jb4 05:41 Follow up: Response: No adverse reaction; Marked relief of symptoms jb4 04:24 Drug: MethylPrednisoLONE IVP 125 mg Route: IVP; Site: right antecubital; jb4 05:41 Follow up: Response: No adverse reaction; Marked relief of symptoms jb4 04:24 Drug: morphine IVP or IV 2 mg Route: IVP; Infused Over: 4 mins; Site: right antecubital;jb4 05:41 Follow up: Response: No adverse reaction; Marked relief of symptoms jb4 05:25 Drug: Clindamycin PO 300 mg Route: PO; jb4 05:42 Follow up: Response: No adverse reaction jb4 05:40 Drug: Ketorolac IVP 30 mg Route: IVP; Site: right antecubital; jb4 Outcome: 05:28 Discharge ordered by . rn 05:59 Discharged to home ambulatory. jb4 05:59 Condition: stable 05:59 Discharge instructions given to patient, Instructed on discharge instructions, follow up and referral plans. medication usage, Demonstrated understanding of instructions, follow-up care, medications, Prescriptions given X 2. 05:59 Patient left the ED. jb4 Signatures: Irina Holland Roman, MD MD rn Bryson, James, RN RN jb4 Suraj Shah RN RN as6
[2022-10-19] MEDS ORDERED: KETOROLAC 30 MG/ML INJ ONE (05:48)
[2022-10-19 06:09] VITALS: TEMP 98.4
[2022-10-19 06:10] VITALS: BP 153/107; O2SAT 97
== END 2022-10-19 05:59 | disposition home or self-care (01) ==
LOC: ER 03:49
DX: L03.211 Cellulitis of face (principal); Z72.0 Tobacco use; Z88.1 Allergy status to other antibiotic agents; Z88.6 Allergy status to analgesic agent
CPT/HCPCS: 96375; 96374; 99284; J1200; J2270; J2930

== ENCOUNTER 2022-10-20 17:18 | Emergency (ER) | payer OTHER ==
--- OUTSIDE RECORDS SUMMARY | 2022-10-20 17:21 | XMS REPORT | Continuity of Care Document ---
:1975 [facility] [address] [place] [address] Care Team Providers Name Role Phone Elif Evans Attending Clinician Lab, Adc Fam Pob I Attending Clinician Unavailable FARSHAD CARDOZA Attending Clinician Unavailable Doctor Unassigned, Aubrey Attending Clinician Unavailable Payers Payer Name Policy Type Policy Number Effective Date Expiration Date S michael [employer] II [id number] 2019 00:00:00 Problems This patient has no known problems. Allergies, Adverse Reactions, Alerts Allergy Allergy Status Severity Reaction(s) Onset Inactive Treating Comm ents Source Name Type Date Date Clinician IBUPROFE DRUG Active N/V 2017-02 Univers N INGREDI 0-10 ity of 00:00: [address] Medications This patient has no known medications. Procedures This patient has no known procedures. Encounters Start End Encounter Admission Attending Care Care Encounter Source Date/Time Date/Time Type Type Clinicians Facility Department ID 2022-02-08 2022-02-08 Outpatient [facility] XOCHITL [id number] Charlie 15:32:53 15:32:53 0104 F Law 2019-10-02 2019-10-02 Outpatient R [facility] [id number] Univers 08:00:00 08:00:00 ity of [facility] 2019-09-15 2019-09-15 RITCHIE Rouse [id number] 00:00:00 00:00:00 [facility] [id number] [place] [id number] Professio [phone] nal [address] One 2019-09-14 2019-09-14 Laboratory Lab, [facility] [id number] 11:56:56 12:16:56 Only Fam Pob I Health [id number] [place] [id number] Professio [phone] nal [address] 2019-09-14 2019-09-14 Outpatient [facility] [id number] Univers 12:00:00 12:00:00 FARSHAD dyer [facility] 2019-09-14 2019-09-14 Letter Doctor KAITLYN [id number] 00:00:00 00:00:00 (Out) Unassigned, [id number] [facility] [phone] [id number] 2019-08-25 2019-08-25 Laboratory Lab, [facility] [id number] 08:23:13 08:43:13 Only Fam Pob I Health [id number] [place] [id number] Professio [phone] [place] [address] Office [address] [facility] 2019-08-25 2019-08-25 [facility] [id number] Univers 08:20:00 08:20:00 FARSHAD ity [facility] 2019-08-25 2019-08-25 Letter Doctor KAITLYN [id number] 00:00:00 00:00:00 (Out) Unassigned, [place] [id number] [facility] [phone] [id number] Results This patient has no known results.
--- NOTE | 2022-10-20 17:39 | ER ---
Nurse's Notes [facility] Name: Mark Anthony Schultz Age: 46 yrs Sex: Male : 1975 Arrival Date: 10/20/2022 Time: 17:18 Bed 16 Private MD: Diagnosis: Dental infection;Nasal congestion Presentation: 10/20 17:19 Chief complaint: EMS states: "toned out for difficulty breathing from allergies, mouth, mb9 and tooth pain. Erie Constable at bedside states pt was trying to strip and had methamphetamine present. pt denies taking any". Coronavirus screen: Vaccine status: Patient reports being unvaccinated. Ebola Screen: No symptoms or risks identified at this time. Initial Sepsis Screen: Does the patient meet any 2 criteria? No. Patient's initial sepsis screen is negative. Does the patient have a suspected source of infection? No. Patient's initial sepsis screen is negative. Risk Assessment: Do you want to hurt yourself or someone else? Patient reports no desire to harm self or others. 17:19 Method Of Arrival: EMS: [facility] mb9 17:19 Acuity: PAMELA 3 mb9 Triage Assessment: 17:24 General: Appears in no apparent distress. uncomfortable, Behavior is. Pain: Complains mb9 of pain in mouth. EENT: Poor dentition noted. Neuro: Level of Consciousness is lethargic, Oriented to person, place, time, situation. Cardiovascular: Patient's skin is warm and dry. Respiratory: Airway is patent Respiratory effort is even, unlabored, Respiratory pattern is regular, symmetrical, Breath sounds are clear bilaterally. GI: Abdomen is round non-distended. : No signs and/or symptoms were reported regarding the genitourinary system. Derm: Skin is pink, warm \\T\\ dry. Musculoskeletal: Range of motion: intact in all extremities. Historical: - Allergies: 17:23 Cipro; mb9 17:23 Ibuprofen; mb9 - Home Meds: 17:23 None [Active]; mb9 - PMHx: 17:23 "low blood pressure some times"; Diverticulitis; mb9 - PSHx: 17:23 None; mb9 - Immunization history:: Adult Immunizations up to date. - Social history:: Smoking status: Patient reports the use of cigarette tobacco products. Screenin:25 [facility] ED Fall Risk Assessment (Adult) History of falling in the last 3 months, mb9 including since admission No falls in past 3 months (0 pts) Confusion or Disorientation No (0 pts) Intoxicated or Sedated No (0 pts) Impaired Gait No (0 pts) Mobility Assist Device Used No (0 pt) Altered Elimination No (0 pt) Score/Fall Risk Level 0 - 2 = Low Risk Oriented to surroundings, Maintained a safe environment, Educated pt \\T\\ family on fall prevention, incl call for assistance when getting out of bed. Abuse screen: Denies threats or abuse. Nutritional screening: No deficits noted. Tuberculosis screening: No symptoms or risk factors identified. Assessment: 17:54 Reassessment: No changes from previously documented assessment. Patient and/or family mb9 updated on plan of care and expected duration. Pain level reassessed. Patient is alert, oriented x 3, equal unlabored respirations, skin warm/dry/pink. Vital Signs: 17:19 BP 129 / 76; Pulse 97; Resp 16; Temp 97.1(O); Pulse Ox 96% on R/A; Weight 90.72 kg; mb9 Height 6 ft. 0 in. ; 17:19 Body Mass Index 27.12 (90.72 kg, 182.88 cm) mb9 ED Course: 17:19 Patient arrived in ED. mb9 17:19 Arm band placed on. mb9 17:23 Triage completed. mb9 17:24 Ba Lipscomb DO is Attending Physician. ms3 17:25 Bed in low position. Call light in reach. Side rails up X 1. Client placed on mb9 continuous cardiac and pulse oximetry monitoring. NIBP monitoring applied. 17:26 No provider procedures requiring assistance completed. mb9 17:33 Irina Morgan, EDGAR is Primary Nurse. mb9 17:37 Elias Lovett DDS is Referral Physician. ms3 17:37 Hola Alfonso DO is Referral Physician. ms3 17:54 Patient did not have IV access during this emergency room visit. mb9 Administered Medications: 17:54 Drug: Acetaminophen PO 1000 mg Route: PO; mb9 17:54 Not Given (Physician Discretion): Loratadine PO 10 mg PO once mb9 Medication: 17:26 VIS not applicable for this client. mb9 Outcome: 17:38 Discharge ordered by . ms3 17:55 Discharged to Law Enforcement mb9 17:55 Condition: stable 17:55 Discharge instructions given to patient, police, Instructed on discharge instructions, follow up and referral plans. Demonstrated understanding of instructions, follow-up care, medications, Prescriptions given X 1. 18:08 Patient left the ED. mb9 Signatures: Ba Lipscomb DO DO ms3 Irina Morgan, RN RN mb9
[2022-10-20] MEDS ORDERED: ACETAMINOPHEN 500 MG TAB ONE (17:57)
--- NOTE | 2022-10-20 18:08 | EDPHYS ---
Physician Documentation [facility] Name: Mark Anthony Schultz Age: 46 yrs Sex: Male : 1975 Arrival Date: 10/20/2022 Time: 17:18 Bed 16 Private MD: ED Physician Ba Lipscomb HPI: 10/20 17:43 This 46 yrs old Black Male presents to ER via EMS with complaints of nasal congestion ms3 and tooth infection. 17:43 46-year-old male with past medical history of diverticulitis, "low blood pressure ms3 sometimes" presents via [facility] in police custody for nasal congestion and dental infection. Patient states he is having dental pain that is moderate. Patient denies alleviating or inciting factors. Patient states he is also having nasal congestion and causing problems with breathing through his nose.. Historical: - Allergies: 17:23 Cipro; mb9 17:23 Ibuprofen; mb9 - Home Meds: 17:23 None [Active]; mb9 - PMHx: 17:23 "low blood pressure some times"; Diverticulitis; mb9 - PSHx: 17:23 None; mb9 - Immunization history:: Adult Immunizations up to date. - Social history:: Smoking status: Patient reports the use of cigarette tobacco products. ROS: 17:43 Constitutional: Negative for fever, and chills. Eyes: Negative for injury, pain, ms3 redness, and discharge. 17:43 ENT: Positive for nasal discharge, Right upper incisor avulsion. 17:43 Cardiovascular: Negative for chest pain, and palpitations. Respiratory: Negative for ms3 shortness of breath, cough, wheezing, and pleuritic chest pain, Abdomen/GI: Negative for abdominal pain, nausea, vomiting, diarrhea, and constipation, Skin: Negative for injury, rash, and discoloration. 17:43 All other systems are negative. Exam: 17:43 Constitutional: This is a well developed, well nourished patient who is awake, alert, ms3 and in no acute distress. Head/Face: Normocephalic, atraumatic. 17:43 Chest/axilla: Normal chest wall appearance and motion. Nontender with no deformity. Respiratory: Lungs have equal breath sounds bilaterally, clear to auscultation and percussion. No rales, rhonchi or wheezes noted. No increased work of breathing, no retractions or nasal flaring. Abdomen/GI: Soft, non-tender, with normal bowel sounds. No distension or tympany. No guarding or rebound. No evidence of tenderness throughout. MS/ Extremity: Pulses equal, no cyanosis. Neurovascular intact. Full, normal range of motion. 17:43 ENT: Nose: Nasal mucosa: edematous, bleeding, is not appreciated. Vital Signs: 17:19 BP 129 / 76; Pulse 97; Resp 16; Temp 97.1(O); Pulse Ox 96% on R/A; Weight 90.72 kg; mb9 Height 6 ft. 0 in. ; 17:19 Body Mass Index 27.12 (90.72 kg, 182.88 cm) mb9 MDM: 17:36 Patient medically screened. ms3 17:43 Differential diagnosis: sinusitis, dental caries, dental abscess, Dental fracture. Data ms3 reviewed: vital signs, nurses notes, and as a result, I will discharge patient. I considered the following discharge prescriptions or medication management in the emergency department Medications were administered in the Emergency Department. See MAR. Historians other than the Patient: EMS: [facility]. Counseling: I had a detailed discussion with the patient and/or guardian regarding the historical points, exam findings, and any diagnostic results supporting the discharge/admit diagnosis, the need for outpatient follow up, to return to the emergency department if symptoms worsen or persist or if there are any questions or concerns that arise at home. Special discussion: I discussed with the patient/guardian in detail that at this point there is no indication for admission to the hospital. It is understood, however, that if the symptoms persist or worsen the patient needs to return immediately for re-evaluation. Administered Medications: 17:54 Drug: Acetaminophen PO 1000 mg Route: PO; mb9 17:54 Not Given (Physician Discretion): Loratadine PO 10 mg PO once mb9 Disposition: 19:27 Chart complete. ms3 Disposition Summary: 10/20/22 17:38 Discharge Ordered Location: Home ms3 Condition: Stable ms3 Diagnosis - Dental infection ms3 - Nasal congestion ms3 Followup: ms3 - With: Elias Lovett DDS - When: 2 - 3 days - Reason: Recheck today's complaints Followup: ms3 - With: Hola Alfonso DO - When: 2 - 3 days - Reason: Recheck today's complaints Discharge Instructions: - Discharge Summary Sheet ms3 - Tooth Injuries ms3 - Postnasal Drip ms3 Forms: - Medication Reconciliation Form ms3 - Thank You Letter ms3 - Antibiotic Education ms3 - Prescription Opioid Use ms3 - Patient Portal Instructions ms3 - Leadership Thank You Letter ms3 Prescriptions: - Clindamycin HCl 300 mg Oral Capsule - take 1 capsule by ORAL route every 8 hours for 10 days; 30 capsule; Refills: 0, ms3 Product Selection Permitted Signatures: Ba Lipscomb DO DO ms3 Irina Morgan RN RN mb9 Corrections: (The following items were deleted from the chart) 17:48 17:43 ENT: Positive for nasal discharge, Right upper incisor fracture, ms3 ms3
[2022-10-20 18:49] VITALS: BP 129/76; TEMP 97.1; O2SAT 96
== END 2022-10-20 18:08 | disposition home or self-care (01) ==
LOC: ER 17:18
DX: K04.7 Periapical abscess without sinus (principal); R09.81 Nasal congestion
CPT/HCPCS: 99284